=== PATIENT | male | born 1940 | race African-American/Black ===

== ENCOUNTER → 2016-11-30 | Outpatient (CLI) | payer MEDICARE, OTHER ==
[~2016-11-30] VITALS: Ht 167.6 cm; Wt 63.6 kg
[~2016-11-30] MED LIST: ALEVE220 MG PO; AMBIEN 10 MG TA10 MG PO; AMLODIPINE BESYL5 MG PO; CARAFATE1 GM/10 ML PO; CHLORTHALIDONE25 MG PO; CITRATE OF MAG296 ML PO; COLACE100 MG PO; CYCLOBENZAPRINE10 MG PO; DITROPAN XL10 MG PO; FLEXERIL PO; FLOMAX PO; FLOMAX0.4 MG PO; HARVONI 90-4001 EACH PO; HCTZ/LISINOPRIL; HYDROCODON-ACE1 EAC5 PO; HYDROCODONE-AP1 EAC6 PO; IBUPROFEN 200200 M1 PO; IBUPROFEN 400400 M1 PO; IBUPROFEN 800800 M1 PO; KEFLEX500 MG PO; LIDODERM 5%1 PATC1 TOP; LIDODERM 5%1 PATC1 TRANSDERM; LIDODERM 5%1 PATCH TOP; LISINOPRIL20 MG PO; LISINOPRIL40 MG PO; LORTAB 5 MG/5001 TA1 PO; LORTAB PO; MEDROLDOSEPACK PO; METAMUCIL PAC1 UDPKT PO; MIRALAX17 GM PO; MIRALAX255 GM PO; MOM; NOHOMEMEDICATIONS; NORCO 5-325 TA1 EACH PO; NORVASC 5 MG TAB5 MG PO; NORVASC10 MG PO; OMEPRAZOLE20 M2 PO; OXYBUTYNIN 5 MG5 M2 PO; PERCOCET 5-3251 EACH PO; PREDNISONE 10 M10 M1 PO; PRILOSEC40 MG PO; PROTONIX40 M2 PO; SANCTURA XR60 M1 PO; SENOKOT-S1 TA1 PO; TOPROL XL50 MG PO; TRAMADOL 50 MG50 MG PO; VALIUM10 MG PO; VICODIN 5-5001 EACH PO; ZOLPIDEM TARTRA10 MG PO; ZPAK PO; [UNRECOGNIZED DRUG - CODE] PO
--- NOTE | ~2016-11-30 | HPC ---
[facility] [place] [address] PAIN MANAGEMENT CONSULTATION Name: SAURABH RAI DENISA Room #: REG STEVE Schneider#: [id number] Admission: 11/30/16 Attend Phys: Doug Bauer DO Discharge: Date of : 39 Report #: [id number] THIS REPORT FOR: //name// CC: [facility] physician/PCP Doug Grimm MD DATE OF SERVICE: 11/30/2016 CHIEF COMPLAINT: Low back pain, bilateral lower extremity pain. HISTORY OF PRESENT ILLNESS: As you know, the patient is a 76-year-old male referred to our service by Dr. Ben Grimm for medication management. The attempt to try to keep the patient at an Emergency Department to receive opioid medications. We have done a successful job of doing so. He has returned today in followup visit for medication management reporting pain level of 6/10. States pain is constant, aching, burning in sensation, exacerbated with walking, standing for any length of time, sitting for any length of time, improves with medications, repositioning, rest and using his wheelchair. ALLERGIES: PROPOXYPHENE. CURRENT MEDICATIONS: Tamsulosin, Harvoni, lisinopril, ribavirin, chlorthalidone, oxybutynin, hydrocodone, ibuprofen, MiraLax, metoprolol, docusate sodium and lisinopril. SOCIAL HISTORY: The patient denies tobacco, alcohol or IV or illicit drug use. He is unaccompanied today. PHYSICAL EXAMINATION: VITAL SIGNS: Blood pressure 160/86, pulse is 80, respiratory rate 20, unlabored. The patient is 100% on room air. Height 5 feet 6 inches tall, weight 140.2 pounds, BMI calculated 22.6. GENERAL: Well developed, well nourished, well hydrated 76-year-old male, appears his stated age, placing current pain score 6/10. HEENT: Normocephalic, atraumatic. Pupils equal, round, reactive to light. EXTREMITIES: Show no clubbing, no cyanosis, no edema. MUSCULOSKELETAL: There is seated straight leg raising that is negative. Supine straight leg raising negative. Mike test negative. Modified Gaenslen's is positive for axial low back pain. There is palpatory tenderness throughout the thoracic and lumbar area. ASSESSMENT: 1. Post-laminectomy syndrome. 2. Chronic low back pain. 3. Chronic lumbar radiculopathy. [address] [address] PAIN MANAGEMENT CONSULTATION Name: SAURABH RAI DENISA Room #: REG CLOneal Jennie#: [id number] Admission: 11/30/16 Attend Phys: Doug Bauer DO Discharge: Date of : 39 Report #: [id number] 4. Lumbosacral spondylosis with radicular symptoms. 5. Chronic intractable pain. PLAN: 1. The patient returns today in followup visit for medication management. He feels medications are working beneficially for pain control. He is denying any side effects to medication, wishes to continue on the therapy that we have provided in the past. He does indicate today that the Lidoderm patches are no longer being covered. He does request a prescription of his medication to take with him in hopes that they will ultimately cover the medication. He has requested 3 months' worth of medication. 2. The patient was provided a prescription of Lidoderm 1 patch q. 12 hours, #30, releases of today, 4 weeks from today, 8 weeks from today, 3 months' worth of medication. 3. The patient was provided a prescription of hydrocodone/acetaminophen 10/325 one tab p.o. q. 6 hours p.r.n. for pain, #120, releases of today, 4 weeks from today, 8 weeks from today. 4. We reviewed the fact that opiate medications are being used to provide analgesia adequate to support activities of daily living, not attempting to achieve a specific pain score on the 0-10 Visual Analog Scale. The current opiate medications are providing sufficient analgesia to allow the patient to participate in activities of daily living. The patient is not exhibiting any aberrant behavior suggestive of drug diversion. The patient is not having any adverse reactions to medications. The patient is not suffering from daytime somnolence or mental acuity changes. The patient is managing opiate-induced constipation with appropriate iejr-gqs-dcwujdd agents and dietary considerations. The patient was counseled on concern for caution with operating a motor vehicle while using opiate medications. A physical exam was performed and the patient's functional status was evaluated. All patients with back pain were advised against the bed rest greater than 4 days and were advised to return to normal activities. Pain score assessment was noted and the treatment plan was reviewed with the patient. All current medications, both prescribed and OTC were reviewed and reconciled on the electronic medical record. Tobacco screening was accomplished and smoking cessation was advised when indicated. BMI was noted and diet/exercise modification was recommended for all patients following outside normal parameters. I reviewed with the patient today their responsibilities to safeguard prescription medications, reviewed their responsibility to utilize medications only as prescribed by the physician. They are to seek and receive pain medications only from 1 physician group ([facility]). They are to use 1 pharmacy and keep the clinic informed if they change pharmacies. Their responsibilities include making followup visits in a timely fashion and to avoid abrupt discontinuation of medication usage. Their responsibilities further [address] [address] PAIN MANAGEMENT CONSULTATION Name: SAURABH RAI DENISA Room #: REG STEVE Jennie#: [id number] Admission: 11/30/16 Attend Phys: Doug Bauer DO Discharge: Date of : 39 Report #: [id number] include bringing their medications (bottles from the pharmacy with residual pills) to the visit for possible confirmation of pill counts and the patient understands it is their responsibility to submit to random drug screens to ensure both that the medications prescribed are present, and that no other controlled substances are present. All prescriptions provided today were generated electronically. 5. The patient will return to our clinic in 3 months for medication management. <ELECTRONICALLY SIGNED> By: Doug Bauer DO 12/06/16 0737 [id number] [id number] Doug Bauer DO /nt
[2016-11-30 09:47] VITALS: BP 160/86
== END | disposition home or self-care (01) ==
LOC: PAIN 07:03
DX: M96.1 Postlaminectomy syndrome, not elsewhere classified (principal); M47.27 Other spondylosis with radiculopathy, lumbosacral region; G89.29 Other chronic pain

== ENCOUNTER → 2017-02-28 | Outpatient (CLI) | payer MEDICARE, OTHER ==
[~2017-02-28] VITALS: Ht 165.1 cm; Wt 70.9 kg
[~2017-02-28] MED LIST changes: +MOVANTIK25 MG PO; +MYRBETRIQ25 MG PO
--- NOTE | ~2017-02-28 | HPC ---
[facility] [place] [address] PAIN MANAGEMENT CONSULTATION Name: SAURABH ARI DENISA Room #: REG STEVE MirandaDorie#: [id number] Admission: 02/28/17 Attend Phys: Doug Bauer DO Discharge: Date of : 39 Report #: [id number] THIS REPORT FOR: //name// CC: [facility] physician/PCP Doug Grimm MD DATE OF SERVICE: 02/28/2017 DATE OF SERVICE: 02/28/2017 CHIEF COMPLAINT: Low back pain, bilateral lower extremity pain. HISTORY OF PRESENT ILLNESS: As you know, the patient is a very pleasant 76-year-old male, who is referred to our clinic by Dr. Ben Grimm for medication management in an attempt to keep the patient out of the Emergency Department just to receive pain medications. We have done a successful job of keeping the patient out of the Emergency Department. He continues to return for other issues, as he does not have a primary care physician. He returns today stating that the pain medications are working well, despite the elevated pain report 05/29. He is having some issues with constipation, which is believed to be due to opioids. He returns to discuss this issue as well as refill medications. He denies any injury or trauma that may have led to progression of pain. ALLERGIES: PROPOXYPHENE. CURRENT MEDICATIONS: Myrbetriq 25 mg a day, chlorthalidone 25 mg twice a day, Lidoderm patch apply topically up to 12 hours at a time, hydrocodone 10/325 one tab every 6 hours p.r.n. for pain, oxybutynin 5 mg twice a day, ibuprofen 400 mg 3 times a day, MiraLax 17 grams per day, metoprolol 50 mg once a day, docusate sodium 100 mg twice a day. SOCIAL HISTORY: The patient denies tobacco, alcohol or IV or illicit drug use. He is unaccompanied today. He is using a scooter for ambulation. IMAGING: No imaging available. PHYSICAL EXAMINATION: VITAL SIGNS: Blood pressure 140/82, pulse 89, respiratory rate 20, unlabored. The patient is 100% on room air, height 5 feet 5 inches tall, weight 156.4 pounds, BMI calculated 26. GENERAL: Well-developed, well-nourished, well-hydrated 76-year-old male appearing stated age, placing pain score today 7/10. HEENT: Normocephalic, atraumatic. Pupils equal, round, reactive to light. Extraocular muscles are intact. [place] [address] PAIN MANAGEMENT CONSULTATION Name: FREDISAURABH DENISA Room #: REG [facility] Jennie#: [id number] Admission: 02/28/17 Attend Phys: Doug Bauer DO Discharge: Date of : 39 Report #: [id number] EXTREMITIES: Show no clubbing, no cyanosis, no edema. MUSCULOSKELETAL: Mike test is negative. Modified Gaenslen's positive for axial low back pain. Seated straight leg raising negative. Supine straight leg raising negative. Palpatory tenderness over the thoracolumbar area. No spinous process tenderness. Ankle clonus negative. Babinski is negative. ASSESSMENT: 1. Post-laminectomy syndrome. 2. Chronic low back pain. 3. Chronic lumbar radicular symptoms. 4. Lumbosacral spondylosis with radicular symptoms. 5. Lumbar degeneration. 6. Opioid-induced constipation. 7. Chronic intractable pain. PLAN: 1. The patient has returned today in followup visit for medication management. During our conversation today, the patient indicates that he has been having significant difficulties with constipation issues. Biov-ysm-wuhhqyu medications have lost efficacy. It is believed his constipation is due to his chronic use of opioids. We have discussed with the patient's medications that might be able to resolve this problem. We have given the patient Movantik 25 mg dose samples and also written a prescription for him. He is to take the samples initially. If his constipation resolves with this medication and only this medication, he is to stop all other kyms-nfe-blkeztp medications at this time, where I would recommend filling the Movantik dose and take it daily to decrease opioid-induced constipation issues. He was given the prescriptions and the samples today. He is to discontinue all quzj-ehz-pgdpxke constipation medications in favor of utilizing the samples of Movantik. Again if this medication is effective, he is to fill the prescription provided today. 2. The patient has requested refills of his hydrocodone. We have given the patient hydrocodone 10/325 mg 1 tab p.o. q. 6 hours p.r.n. for pain, #120 releases of today, 4 weeks from today, 8 weeks from today. 3. The patient was provided a prescription of Lidoderm 5% patch 1 patch q. 12 hours, given #30 patches, 2 refills. 4. The patient will follow up with his primary care physician for all other concomitant medical issues. We will see the patient back for followup visit in 3 months. <ELECTRONICALLY SIGNED> By: Doug Bauer DO 03/01/17 1128 0740 0837 Doug Bauer, /nt
[2017-02-28 10:08] VITALS: BP 148/82
== END | disposition home or self-care (01) ==
LOC: PAIN 07:18
DX: M96.1 Postlaminectomy syndrome, not elsewhere classified (principal); M54.16 Radiculopathy, lumbar region; M47.817 Spondylosis without myelopathy or radiculopathy, lumbosacral region; M51.36 Other intervertebral disc degeneration, lumbar region; F11.988 Opioid use, unspecified with other opioid-induced disorder; G89.29 Other chronic pain

== ENCOUNTER → 2017-05-30 | Outpatient (CLI) | payer MEDICARE, OTHER ==
[~2017-05-30] VITALS: Ht 170.2 cm; Wt 63.5 kg
[~2017-05-30] MED LIST changes: +PROSTATE HEALT1 EAC1 PO
[2017-05-30 12:35] VITALS: BP 175/94
== END | disposition home or self-care (01) ==
LOC: PAIN 07:24
DX: M47.27 Other spondylosis with radiculopathy, lumbosacral region (principal); G89.29 Other chronic pain; M96.1 Postlaminectomy syndrome, not elsewhere classified; F11.20 Opioid dependence, uncomplicated; Z98.890 Other specified postprocedural states

== ENCOUNTER → 2017-08-29 | Outpatient (CLI) | payer MEDICARE, OTHER ==
[~2017-08-29] VITALS: Ht 170.2 cm; Wt 65.8 kg
--- NOTE | ~2017-08-29 | HPC ---
[facility] [place] [address] PAIN MANAGEMENT CONSULTATION Name: FREDISAURABH DENISA Room #: REG STEVE Schneider#: [id number] Admission: 08/29/17 Attend Phys: Doug Bauer DO Discharge: Date of : 39 Report #: [id number] THIS REPORT FOR: //name// CC: [facility] physician/PCP Doug Grimm MD DATE OF SERVICE: 08/29/2017 REFERRING PHYSICIAN: Blake Grimm MD CHIEF COMPLAINT: Low back pain, bilateral lower extremity pain and paresthesias. HISTORY OF PRESENT ILLNESS: As you know, the patient is a 77-year-old male who returns today in followup visit for continuation of medication therapy. He is placing current pain score 6-7/10, states pain is chronic, aching and burning in sensation, exacerbated with activity, improves with medications, sitting, rest and using his scooter as well as exercises. He returns today in followup visit for medication management. He states he is being followed by orthopedics who is providing intraarticular knee injections for pain control. He appears to be improving with these injections. He returns for refills of his hydrocodone therapy. ALLERGIES: PROPOXYPHENE. CURRENT MEDICATIONS: Docusate sodium, hydrocodone, Prostate Health caplet, Myrbetriq, chlorthalidone, ibuprofen, MiraLax, and metoprolol. SOCIAL HISTORY: The patient denies tobacco, alcohol, IV or illicit drug use. He is on disability, has been so for years, he is unaccompanied today. IMAGING: No new imaging available. PHYSICAL EXAMINATION: VITAL SIGNS: Blood pressure 169/95, pulse is 74, respiratory rate 16 and unlabored, the patient is 97% on room air, height 5 feet 7 inches tall, weight 145 pounds, and BMI calculated 22.7. GENERAL: Well-developed, well-nourished, well-hydrated 77-year-old male, appears his stated age, pain is rated at around 6-7/10. HEENT: Normocephalic, atraumatic. Pupils are equal, round, and reactive to light. Speech is fluent. Poor dentition. EXTREMITIES: Show no clubbing, no cyanosis, and no edema. MUSCULOSKELETAL: Lower extremity strength is symmetrical, but diminished bilaterally. Seated straight leg raising negative. Supine straight leg raising negative. Allen's test negative. Modified Gaenslen's positive for axial low [address] [address] PAIN MANAGEMENT CONSULTATION Name: FR[facility]ISAURABH [id number] Admission: 08/29/17 Attend Phys: Doug Bauer DO Discharge: Date of : 39 Report #: [id number] back pain. Ankle clonus negative. Babinski is negative. ASSESSMENT: 1. Post laminectomy syndrome. 2. Chronic low back pain. 3. Chronic lumbar radiculopathy. 4. Lumbosacral spondylosis with radicular symptoms. 5. Degeneration of lumbar spine. 6. Opioid dependency. 7. Chronic intractable pain. PLAN: 1. The patient returns today in followup visit for medication management. The patient feels medications are working beneficially despite the elevated pain score today. The patient has requested a refill on the medication at the current dosing. We have been successful at providing analgesic benefit, keeping the patient out of the emergency department and utilizing the health system inappropriately. This was requested by Dr. Ben Grimm, we will continue this medication therapy to assist in keeping the patient under control from a pain standpoint. We recommend the continuation of the therapy for the next 3 months. The patient will ultimately need to find a primary care physician willing to write these medications as we cannot be involved in his long-term opioid therapy for perpetuity. The patient will need to find somebody who will be able to initiate therapy and continue the therapy more convenient to his home. 2. The patient was provided a prescription of hydrocodone 10/325 one tab every 6 hours p.r.n. for pain, I have given the patient #120, release dates of today, 4 weeks from today, 8 weeks from today. He has been appropriate with his medication, has not called for early refills nor has he lost or had prescription stolen. He is to safeguard his medications as we have discussed every visit prior. 3. We will see the patient back in followup visit in 3 months unless he can find a primary care physician willing to provide these treatments to maintain his analgesic benefit keeping him out of the emergency department and utilizing the system inappropriately. He will discuss this with his PCP and contact us with results. <ELECTRONICALLY SIGNED> By: Doug Bauer DO 08/30/17 0806 1635 1738 Doug Bauer DO /nt
[2017-08-29 09:58] VITALS: BP 169/95
== END | disposition home or self-care (01) ==
LOC: PAIN 07:10
DX: M96.1 Postlaminectomy syndrome, not elsewhere classified (principal); M54.16 Radiculopathy, lumbar region; M47.27 Other spondylosis with radiculopathy, lumbosacral region; F11.20 Opioid dependence, uncomplicated; G89.29 Other chronic pain; Z88.8 Allergy status to other drugs, medicaments and biological substances; Z79.899 Other long term (current) drug therapy

== ENCOUNTER → 2017-11-28 | Outpatient (CLI) | payer MEDICARE, OTHER ==
[~2017-11-28] VITALS: Ht 170.2 cm; Wt 65.8 kg
[~2017-11-28] MED LIST changes: +BAYER CHEWABLE81 MG PO; +CENTRUM SILVER1 EAC2 PO; +CIPRO250 M1 PO; +CONSTULOSE10 GM/152 PO; +FERROUS GLUCON324 M3 PO; +LIDODERM1 EACH TOP; +LIDODERM1 EACH TRANSDERM; +NEURONTIN 300300 M1 PO; +PROTONIX40 M1 PO; +SIMETHICON CHEW80 M1 PO; +URECHOLINE 10 M10 M1 PO; +VITAMIN D2000 UNIT PO
--- NOTE | ~2017-11-28 | HPC ---
[facility] [address] [place] [address] PAIN MANAGEMENT CONSULTATION Name: FREDISAURABH DENISA Room #: REG STEVE Schneider#: [id number] Admission: 11/28/17 Attend Phys: Doug Bauer DO Discharge: Date of : 39 Report #: [id number] THIS REPORT FOR: //name// CC: [facility] physician/PCP Doug Grimm MD DATE OF SERVICE: 11/28/2017 REFERRING PHYSICIAN: Blake Grimm MD CHIEF COMPLAINT: Low back pain, bilateral lower extremity pain. HISTORY OF PRESENT ILLNESS: As you know, the patient is a 77-year-old male who returns today in followup visit for medication management. He is placing his pain score today at around 6/10, states pain is constant, aching, burning in sensation, exacerbated with activity, walking, and standing, improves with medication, sitting resting, using a scooter and exercise. He returns today requesting refill on medications. He denies any injury or trauma that may have led to progression of symptoms. He is having no side effects with the therapy at this point. ALLERGIES: PROPOXYPHENE. CURRENT MEDICATIONS: See chart. SOCIAL HISTORY: The patient denies tobacco, alcohol, IV or illicit drug use. He is on disability, has been so for years. He is unaccompanied today. He is using a scooter for ambulation. IMAGING: No new imaging available. PHYSICAL EXAMINATION: VITAL SIGNS: Blood pressure 144/85, pulse 83, respiratory rate 14 and unlabored, the patient is 98% on room air, height 5 feet 7 inches tall, weight 145 pounds, and BMI calculated 22.7. GENERAL: Well-developed, well-nourished, well-hydrated, thin 77-year-old male, appears his stated age, he is placing current pain score somewhere between 6-7/10. HEENT: Normocephalic, atraumatic. Pupils are equal, round, and reactive to light. Extraocular muscles are intact. EXTREMITIES: Show no clubbing, no cyanosis, and no edema. MUSCULOSKELETAL: Lower extremity strength is symmetrical, but diminished bilaterally. Seated straight leg raising negative. Supine straight leg raising negative. Mike's test negative. Modified Gaenslen's positive for axial low back pain. Ankle clonus negative. Babinski is negative. [address] [address] PAIN MANAGEMENT CONSULTATION Name: SAURABH RAI DENISA Room #: REG Oneal Schneider#: [id number] Admission: 11/28/17 Attend Phys: Doug Bauer DO Discharge: Date of : 39 Report #: [id number] ASSESSMENT: 1. Post laminectomy syndrome. 2. Chronic low back pain. 3. Chronic lumbar radiculopathy. 4. Degeneration of lumbar spine. 5. Lumbosacral spondylosis with radicular symptoms. 6. Opioid dependency. 7. Chronic intractable pain. PLAN: 1. The patient returns today in followup visit for medication management. The patient indicates good efficacy with medication therapy. He is being seen by wound care for a decubitus ulcer on his buttock secondary to his prolonged sitting. We have discussed with the patient our desire to have him ambulate more consistently, this should alleviate some of his decubitus pressure. He is considering this as an option. He has returned requesting refill on medications. Following was prescribed. 2. The patient was provided a prescription of hydrocodone 10/325 one tab every 6 hours p.r.n. for pain, #120, release dates of today, 4 weeks from today, 8 weeks from today. He has been stable on this medication for a very long period of time, no changes are necessary. 3. The patient was provided a prescription of Lidoderm patch 1 patch topically every 12 hours, given #30, 2 refills. 4. The patient was provided a refill prescription of his ibuprofen 400 mg dose 2 tabs p.o. b.i.d., #120, release is now, 4 weeks and 8 weeks. 5. We will see the patient back in followup visit in 3 months for medication therapy, interventional treatments. It did come to our attention the patient is seeking interventional treatments at another facility, if this is the case, we will be discharging his care to their facility as they can take over medication management if he is being seen for other pain related issues. <ELECTRONICALLY SIGNED> By: Doug Bauer DO 12/12/17905 1 1 Doug Bauer DO /nt
[2017-11-28 10:00] VITALS: BP 144/85
== END ==
LOC: PAIN 06:48
DX: M96.1 Postlaminectomy syndrome, not elsewhere classified (principal); M47.896 Other spondylosis, lumbar region; M47.27 Other spondylosis with radiculopathy, lumbosacral region; G89.29 Other chronic pain; F11.90 Opioid use, unspecified, uncomplicated

== ENCOUNTER → 2018-02-27 | Outpatient (CLI) | payer MEDICARE, OTHER ==
[~2018-02-27] VITALS: Ht 170.2 cm; Wt 68.0 kg
[~2018-02-27] MED LIST changes: -BAYER CHEWABLE81 MG PO; -CENTRUM SILVER1 EAC2 PO; -CIPRO250 M1 PO; -CONSTULOSE10 GM/152 PO; -FERROUS GLUCON324 M3 PO; -LIDODERM1 EACH TOP; -NEURONTIN 300300 M1 PO; -PROTONIX40 M1 PO; -SIMETHICON CHEW80 M1 PO; -URECHOLINE 10 M10 M1 PO; -VITAMIN D2000 UNIT PO
--- NOTE | ~2018-02-27 | HPC ---
[facility] [place] [address] PAIN MANAGEMENT CONSULTATION Name: FREDISAURABH DENISA Room #: REG STEVE BooneDorieHannaDorie#: [id number] Admission: 02/27/18 Attend Phys: Doug Bauer DO Discharge: Date of : 39 Report #: [id number] THIS REPORT FOR: //name// CC: FAM physician/PCP Doug Grimm MD DATE OF SERVICE: 02/27/2018 REFERRING PHYSICIAN: Ben Grimm M.D. CHIEF COMPLAINT: Low back pain, bilateral lower extremity pain and bilateral knee change secondary to osteoarthritis. HISTORY OF PRESENT ILLNESS: As you know, the patient is a 77-year-old male who returns today in followup visit indicating no changes in his medical history. He is placing current pain score at approximately 7/10. The majority of his pain is located in the bilateral knees, for which he is being evaluated for total knee arthroplasty. At present, his back pain is only at a level of 3/10. He has returned today in followup visit requesting refill on medications to maintain analgesic benefit. He is denying side effects to the hydrocodone, ibuprofen therapy and wishes to continue the treatment. He does have plans to seek evaluation with Orthopedics once he has completed his requested physical therapy. Once this has completed, they may look towards a total knee arthroplasty. He returns requesting refill on medications. ALLERGIES: PROPOXYPHENE. CURRENT MEDICATIONS: Ibuprofen 400 mg twice a day, hydrocodone 10/325 one tab every 6 hours p.r.n. for pain, docusate sodium 100 mg per day, saw palmetto oil 1 tab per day, Myrbetriq 25 mg once a day, chlorthalidone 25 mg twice a day, MiraLax 17 grams per day and metoprolol XL 50 mg once a day. SOCIAL HISTORY: The patient denies tobacco, alcohol, IV or illicit drug use. He is on disability, has been so for years and he is unaccompanied today. IMAGING: No new imaging available. PQRS: The patient has known osteoarthritis in the upper extremities and lower extremities. No rheumatoid arthritis. He places his pain score at 7/10. He is a fall risk. He is using a scooter for ambulation. He has not had a fall in the last 3 months. He is not on blood thinners. He is treated for hypertension. He is on opioids and has been for a very long period of time. He has a low assessment for opioid dependency. His functional assessment/pain interference tool indicates 27 of 70, [id number] [address] PAIN MANAGEMENT CONSULTATION Name: FREDISAURABH DENISA Room #: REG STEVE Schneider#: [id number] Admission: 02/27/18 Attend Phys: Doug Bauer DO Discharge: Date of : 39 Report #: [id number] PHYSICAL EXAMINATION: VITAL SIGNS: Blood pressure 131/95, pulse 86 and respiratory rate 16, unlabored. The patient is 98% on room air. Height 5 feet 7 inches tall, weight 150 pounds and BMI calculated at 23.5. GENERAL: Well-developed, well-nourished, well-hydrated 77-year-old male, who appears stated age. He is placing pain score at 7/10. HEENT: He is normocephalic, atraumatic. Pupils equal, round and reactive to light. Speech is fluent for the patient. He is deemed a poor historian. LUNGS: Clear. No wheezes, rhonchi or rales. CARDIOVASCULAR: Regular. No appreciable gallop or rub. EXTREMITIES: Show no clubbing, no cyanosis. There is noted crepitus with movement of the knees bilaterally, left greater than right. MUSCULOSKELETAL: Lower extremity strength equal and symmetrical, diminished bilaterally due to deconditioning. Seated straight leg raising negative. Supine straight leg raising negative. Mike test negative. Modified Gaenslen's positive for axial low back pain. Ankle clonus negative. Babinski is negative. ASSESSMENT: 1. Post-laminectomy syndrome. 2. Chronic low back pain. 3. Chronic lumbar radicular symptoms. 4. Degeneration of lumbar spine. 5. Lumbosacral spondylosis with radicular symptoms. 6. Bilateral knee pain. 7. Osteoarthritis. 8. Chronic intractable pain. PLAN: 1. The patient returns today in followup visit indicating that he is being evaluated currently for total knee arthroplasty, left and right sided. He continues physical therapy as directed by Orthopedics to continue to strengthen the lower extremities in preparation for total knee arthroplasties. The plan is to have the patient undergo this procedure in the very near future. He is yet to plan this appointment for surgery, but does have followups with him periodically. 2. The patient has requested refill on medications. We have given him ibuprofen 200 mg tablets 2 tabs twice a day, #120. He is to take this with meals. He was given 2 refills, 3 months' worth of medication. 3. The patient was provided refill prescription of his hydrocodone 10/325 one tab every 6 hours p.r.n. for pain. I have given the patient #120, releases of today, 4 weeks from today, 8 weeks from today, 3 months' worth of medication. 4. The patient will contact our clinic to advise us of the timing of his total knee arthroplasty. We are hopeful that once the patient has undergone surgery for the bilateral knee pain, that he will be able to begin weaning off his opioids, as a long-term opioid therapy is not a proved treatment option for axial back pain the patient has been experiencing and we are hopeful that we [address] [place] [address] PAIN MANAGEMENT CONSULTATION Name: SAURABH RAI DENISA Room #: REG STEVE Schneider#: [id number] Admission: 02/27/18 Attend Phys: Doug Bauer DO Discharge: Date of : 39 Report #: [id number] can ultimately have him reduce this dose to anti-inflammatory medications specifically. 5. We will see the patient back in followup visit in 3 months or earlier if adjustments can be made to reduce his reliance on opioids. By: [id number] [id number] Doug Bauer DO /nt
[2018-02-27 09:20] VITALS: BP 131/95
== END ==
LOC: PAIN 07:09
DX: M96.1 Postlaminectomy syndrome, not elsewhere classified (principal); M47.27 Other spondylosis with radiculopathy, lumbosacral region; G89.29 Other chronic pain; M25.561 Pain in right knee; M25.562 Pain in left knee; M19.90 Unspecified osteoarthritis, unspecified site; Z88.6 Allergy status to analgesic agent

== ENCOUNTER → 2018-06-13 | Outpatient (CLI) | payer MEDICARE, OTHER ==
[~2018-06-13] VITALS: Ht 170.2 cm; Wt 72.6 kg
[~2018-06-13] MED LIST changes: +BAYER CHEWABLE81 MG PO; +CENTRUM SILVER1 EAC2 PO; +CIPRO250 M1 PO; +CONSTULOSE10 GM/152 PO; +FERROUS GLUCON324 M3 PO; +LIDODERM1 EACH TOP; +NEURONTIN 300300 M1 PO; +PROTONIX40 M1 PO; +SIMETHICON CHEW80 M1 PO; +URECHOLINE 10 M10 M1 PO; +VITAMIN D2000 UNIT PO
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
[2018-06-13 13:34] VITALS: BP 163/78
== END ==
LOC: PAIN 06:28
DX: Z09 Encounter for follow-up examination after completed treatment for conditions other than malignant neoplasm (principal); I10 Essential (primary) hypertension; M17.0 Bilateral primary osteoarthritis of knee; M19.012 Primary osteoarthritis, left shoulder; M19.011 Primary osteoarthritis, right shoulder; Z79.891 Long term (current) use of opiate analgesic

== ENCOUNTER → 2018-09-19 | Outpatient (CLI) | payer MEDICARE, OTHER ==
[~2018-09-19] VITALS: Ht 172.7 cm; Wt 63.5 kg
--- NOTE | ~2018-09-19 | HPC ---
[facility] [place] [address] [address] [place] [address] PAIN MANAGEMENT CONSULTATION Name: SAURABH RAI DENISA Room #: REG STEVE BooneDorieHannaDorie#: [id number] Admission: 09/19/18 Attend Phys: Li Ferreira Discharge: Date of : 39 Report #: [id number] THIS REPORT FOR: //name// CC: Li Ferreira [facility] physician/PCP DATE OF SERVICE: 09/19/2018 CHIEF COMPLAINT: The patient is here today for medication refill for his chronic low back pain with lumbar radiculopathy, status post lumbar laminectomy syndrome. HISTORY OF PRESENT ILLNESS: The patient is a 78-year-old black gentleman who has been followed in the pain clinic by Dr. Doug Bauer. He returns to the pain clinic today for his medication refill for his low back pain as well as pain that goes into his legs and knees. The patient states that his medication is very helpful in relieving his pain. He takes hydrocodone 10/325 four times a day as well as ibuprofen 400 mg tablets twice a day. The patient tells me that his pain score is 5/6 today. He does have occasionally constant, aching, burning pain in his legs, worse with activity, standing and walking. The patient tells me since his last visit, he was in the hospital for constipation issues and after that went to [facility]. He tells me that his constipation is currently controlled by increasing his diet to a healthier diet, eating more green vegetables and he is taking on a daily basis Colace and MiraLax. He denies daytime sleepiness. The patient also tells me that he has been doing physical therapy at [facility], he goes 2 times a week, has been going for the last month. He tells me he needs left knee replacement and before he can do that he needs to be able to strengthen his leg, it has gotten weak over the years and contracted some. The patient is able to straight leg raise up to maybe 150-160 degrees at this time. He tells me he is also practicing walking with a walker while at therapy. They use a machine to help him stand. He is very excited to be able to continue this therapy so that he is more mobile and hopefully not in his wheelchair all the time. The patient tells me he does take his therapy sessions twice a week and then continues all the therapies that he is able to do at home. ALLERGIES: DARVON. CURRENT LIST OF MEDICATIONS: Lactulose, simethicone, gabapentin, multivitamin, iron, Urecholine, Flomax, aspirin, vitamin D3, Flexeril, Protonix, ibuprofen, hydrocodone 10/325 four a day, Colace, prostate health capsule, chlorthalidone, MiraLax and Toprol. PQRS: 1. The patient has a history of osteoarthritis in his upper and lower extremities, bilateral. Denies rheumatoid arthritis. [address] [address] PAIN MANAGEMENT CONSULTATION Name: FREDISAURABH DENISA Room #: REG [facility] Jennie#: [id number] Admission: 09/19/18 Attend Phys: Li Ferreira Discharge: Date of : 39 Report #: [id number] 2. Height is 5 feet 8 inches, weight is 140, BMI is 21.3. 3. Vital signs 143/74, pulse is 72, respirations 18, oxygen level is 97%. 4. Pain intensity is 6/10. 5. Fall risk: He denies dizziness. He does need help walking. He is in a wheelchair today. He has not fallen in the last 3 months. 6. Denies blood thinners. 7. Has a history of hypertension. 8. Opioid therapy greater than 6 weeks and opioid signed contract is on the chart. 9. Risk assessment tool is 01/27 and his functional assessment is . 10. Recreational drug use, the patient denies. He states he has never smoked and does not drink alcohol. The patient was checked for his [place] PDMP, is on the chart and appropriate fills from Dr. Annika Wesley and Dr. Doug Bauer. No other aberrant behaviors and the patient tells me he safeguards his medicines. PHYSICAL EXAMINATION: GENERAL: The patient is a well-developed black male who appears his stated age. He is alert and oriented. HEENT: Normocephalic, atraumatic. Extraocular muscles are intact. Speech is fluent. EXTREMITIES: Upper extremities: No clubbing or cyanosis. The patient complains of pain in his back and knees. MUSCULOSKELETAL: Strength equal in upper extremities, diminished in his lower extremities. The patient able to raise his left leg to 150 degrees extension, in his right at 180. No edema noted. IMPRESSION: 1. Post-laminectomy syndrome. 2. Chronic low back pain. 3. Lumbar radiculopathy. 4. Degeneration of lower lumbar spine. 5. Bilateral knee pain. 6. Osteoarthritis. We reviewed the fact that opiate medications are being used to provide analgesia adequate to support activities of daily living, not attempting to achieve a specific pain score on the 0-10 Visual Analog Scale. The current opiate medications are providing sufficient analgesia to allow the patient to participate in activities of daily living. The patient is not exhibiting any aberrant behavior suggestive of drug diversion. The patient is not having any adverse reactions to medications. The patient is not suffering from daytime somnolence or mental acuity changes. The patient is managing opiate-induced constipation with appropriate lbqa-ris-ovvmuse agents and dietary considerations. The patient was counseled on concern for caution with operating a motor vehicle while using opiate medications. [facility] [address] [place] [address] PAIN MANAGEMENT CONSULTATION Name: SAURABH RAI DENISA Room #: REG [facility] Ruben.#: [id number] Admission: 09/19/18 Attend Phys: Li Ferreira Discharge: Date of : 39 Report #: [id number] A physical exam was performed and the patient's functional status was evaluated. All patients with back pain were advised against the bed rest greater than 4 days and were advised to return to normal activities. Pain score assessment was noted and the treatment plan was reviewed with the patient. All current medications, both prescribed and OTC were reviewed and reconciled on the electronic medical record. Tobacco screening was accomplished and smoking cessation was advised when indicated. BMI was noted and diet/exercise modification was recommended for all patients following outside normal parameters. I reviewed with the patient today their responsibilities to safeguard prescription medications, reviewed their responsibility to utilize medications only as prescribed by the physician. They are to seek and receive pain medications only from 1 physician group ([facility]). They are to use 1 pharmacy and keep the clinic informed if they change pharmacies. Their responsibilities include making followup visits in a timely fashion and to avoid abrupt discontinuation of medication usage. Their responsibilities further include bringing their medications (bottles from the pharmacy with residual pills) to the visit for possible confirmation of pill counts and the patient understands it is their responsibility to submit to random drug screens to ensure both that the medications prescribed are present, and that no other controlled substances are present. All prescriptions provided today were generated electronically. PLAN: 1. The patient was seen for his medication refills. I think it was appropriate to refill his hydrocodone 10/325 one p.o. q.i.d., #120; script was given for today, 4-week and 8-week, ibuprofen 400 mg 1 tablet up to 4 times a day, 120 with 2 additional refills. 2. The patient will continue his physical therapy working towards a left total knee replacement in the near future. 3. Encourage the patient to get a flu shot. He said he had not had that done yet, but hopes to have that done in the near future from his primary care doctor. 4. The patient will be seen in 3-month time period by myself for renewal of his medications and then subsequent visit with Dr. Doug Bauer. The patient is agreeable with this plan of care. The patient was seen in collaboration today with Dr. Doug Bauer. <ELECTRONICALLY SIGNED> By: Li Ferreira 09/21/18 0716 [id number] Li Ferreira /eddie
[2018-09-19 10:44] VITALS: BP 143/74
== END ==
LOC: PAIN 06:53
DX: M96.1 Postlaminectomy syndrome, not elsewhere classified (principal); M54.5 Low back pain; G89.29 Other chronic pain; M25.561 Pain in right knee; M25.562 Pain in left knee; M17.11 Unilateral primary osteoarthritis, right knee; M17.12 Unilateral primary osteoarthritis, left knee; M47.896 Other spondylosis, lumbar region; Z79.899 Other long term (current) drug therapy

== ENCOUNTER → 2018-12-26 | Outpatient (CLI) | payer MEDICARE, OTHER ==
[~2018-12-26] VITALS: Ht 172.7 cm; Wt 68.0 kg
[~2018-12-26] MED LIST changes: +IBUPROFEN 400400 M2 PO
[2018-12-26 09:26] VITALS: BP 172/104
--- NOTE | 2018-12-26 09:29 | NUR ---
Pain Clinic Assessment: 1. History of Osteoarthritis: Left Lower Extremity Left Upper Extremity Right Lower Extremity Right Upper Extremity History of Rheumatoid Arthritis: Not Applicable 2. Height: 5 ft. 8 in. 172.7 cm. Weight: 150.0 lb. oz. 68.040 kg. Patient's BMI: 22.8 3. Vital Signs: BP: 172/104 Pulse: 75 Resp: 18 Temp: 02 Sat: 97 ECG Mon: 4. Pain Intensity: 6 5. Fall Risk: Dizziness: Y Needs help standing or walking: Y Fallen in the last 3 months: N Fall risk comments: 6. Patient on Blood Thinner: None 7. History of Hypertension: Y 8. Opioid Therapy greater than 6 weeks: Y Opiate Contract Signed: 06/01/16 9. Risk Assessment Tool Provided: 3 low risk 10. Functional Assessment Tool: 11. Recreational Drug Use: Never Drug Type: Tobacco Use: Never Smoker Tobacco Type: Amount or Packs/day: How Many Years: Alcohol Use: No Frequency: Quant:
--- NOTE | 2018-12-27 09:46 | HPC ---
[facility] [address] [place] [address] PAIN MANAGEMENT CONSULTATION Name: SAURABH RAI DENISA Room #: REG STEVE Jennie#: [id number] Admission: 12/26/18 Attend Phys: Li Ferreira Discharge: Date of : 39 Report #: [id number] THIS REPORT FOR: //name// CC: Li Ferreira [facility] physician/PCP DATE OF SERVICE: 12/26/2018 CHIEF COMPLAINT: Chronic low back pain with lumbar radiculopathy, status post lumbar laminectomy syndrome. HISTORY OF PRESENT ILLNESS: This is a very pleasant 78-year-old gentleman who has been followed in the pain clinic for his chronic low back pain. He is here today for a medication refill. The patient tells me that he has been doing fairly well. Pain score 6/10, mostly in his low back and his knees. He tells me he has been doing physical therapy for his knees for quite some time at [facility] trying to get it built up in strength, so he can have a knee replacement. He has also started some physical therapy for his shoulder pain. He tells me he did have a bad bout of constipation, which resulted in a barium enema. It sounds like to have it resolved. He has discussed ongoing constipation issues. He tells me overall he feels like he is doing fairly well with his current pain regimen. ALLERGIES: DARVON. CURRENT MEDICATIONS: Ibuprofen 400 mg 4 times a day, hydrocodone 10/325 up to 4 times a day, Cipro 250 b.i.d., lactulose daily, simethicone as needed, gabapentin 300 mg daily, multivitamin daily, iron daily, Urecholine 10 mg daily, Lidoderm patches as needed, Flomax daily, aspirin 81 mg daily, vitamin D daily, Flexeril as needed, Protonix 40 mg daily, Colace 100 mg daily, prostate health caplet daily, Myrbetriq 25 mg daily, chlorthalidone 25 mg b.i.d., MiraLax daily and metoprolol 50 mg daily. PQRS: 1. The patient has a history of osteoarthritis in his upper and lower extremities in his low back and his knees. Denies rheumatoid arthritis. 2. Height is 5 feet 8 inches, weight is 150, BMI is 22. 3. Vital signs: Blood pressure 172/104, pulse is 75, respirations 18, oxygen sat is 97%. Pain score 6/10. 4. Fall risk. He does complain of some dizziness. He does need help walking and standing, but he has not fallen in the last 3 months. He is sitting in his electric wheelchair today. 5. The patient is not on any blood thinners. He does have a history of hypertension. 6. Opioid therapy is greater than 6 weeks; therefore, an opioid signed contract is on the chart. [address] [address] PAIN MANAGEMENT CONSULTATION Name: SAURABH RAI Room #: REG STEVE Schneider#: [id number] Admission: 12/26/18 Attend Phys: Li Ferreira Discharge: Date of : 39 Report #: [id number] 7. Risk assessment tool is low. His functional assessment is 27/70. 8. Recreational drug use. He denies. He is not a smoker and he does not drink alcohol. We did check the prescription monitoring system. The patient feels appropriate with his current medications for Dr. Doug Bauer. We did check a drug screen on his last visit, though we have not seen the results and we will contact the lab again today. PHYSICAL EXAMINATION: GENERAL: This is a well-developed, well-nourished black gentleman who appears his stated age. He is alert and orientated and he is a good historian. HEENT: Normocephalic, atraumatic. Extraocular muscles are intact. Speech is fluent. EXTREMITIES: Upper extremities. No clubbing, no cyanosis. MUSCULOSKELETAL: Muscle strength is equal in his upper extremities, judging to be 5/5; is diminished in his lower extremities, judged to be 3-4/5 bilaterally. He is able to raise his leg about 150 degrees. He has no edema noted. IMPRESSION: 1. Post-laminectomy syndrome. 2. Chronic low back pain. 3. Lumbar radiculopathy. 4. Degeneration of lumbar spine. 5. Bilateral knee pain. 6. Osteoarthritis. We reviewed the fact that opiate medications are being used to provide analgesia adequate to support activities of daily living, not attempting to achieve a specific pain score on the 0-10 Visual Analog Scale. The current opiate medications are providing sufficient analgesia to allow the patient to participate in activities of daily living. The patient is not exhibiting any aberrant behavior suggestive of drug diversion. The patient is not having any adverse reactions to medications. The patient is not suffering from daytime somnolence or mental acuity changes. The patient is managing opiate-induced constipation with appropriate [id number] agents and dietary considerations. The patient was counseled on concern for caution with operating a motor vehicle while using opiate medications. A physical exam was performed and the patient's functional status was evaluated. All patients with back pain were advised against the bed rest greater than 4 days and were advised to return to normal activities. Pain score assessment was noted and the treatment plan was reviewed with the patient. All current medications, both prescribed and OTC were reviewed and reconciled on the electronic medical record. Tobacco screening was accomplished and smoking cessation was advised when indicated. BMI was noted and diet/exercise modification was recommended for all patients following outside normal parameters. [facility] [address] [place] [address] PAIN MANAGEMENT CONSULTATION Name: SAURABH RAI DENISA Room #: REG [facility].#: [id number] Admission: 12/26/18 Attend Phys: Li Ferreira Discharge: Date of : 39 Report #: [id number] I reviewed with the patient today their responsibilities to safeguard prescription medications, reviewed their responsibility to utilize medications only as prescribed by the physician. They are to seek and receive pain medications only from 1 physician group ( [facility]). They are to use 1 pharmacy and keep the clinic informed if they change pharmacies. Their responsibilities include making followup visits in a timely fashion and to avoid abrupt discontinuation of medication usage. Their responsibilities further include bringing their medications (bottles from the pharmacy with residual pills) to the visit for possible confirmation of pill counts and the patient understands it is their responsibility to submit to random drug screens to ensure both that the medications prescribed are present, and that no other controlled substances are present. All prescriptions provided today were generated electronically. PLAN: 1. We discussed treatment options with the patient today. He has been complaining of constipation. He did have what sounds like to be a barium enema about a month ago. The patient does take MiraLax. We encouraged have him take it twice a day along with his stool softeners. If he finds that he is having loose stools or too many stools, then he can cut back on his MiraLax and only take it daily. The patient also does take lactulose and will continue this on his daily basis. The patient is agreeable with this and verbalizes understanding of the plan. We did also talk about slow movement tea that is filled [id number] in the laxative area that maybe he could try that gentle medication as well. 2. The patient given scripts for his hydrocodone . The patient takes 4 tablets a day, #120 to be released today, 4 and 8 weeks. The patient's MME follows at 39 per the CDC guidelines. This enables him per clinic guidelines to be seen every 3 months. Second medication is ibuprofen 400 mg up to 4 times a day, quantity 120 with 2 additional refills. 3. The patient will be seen in [address] Doug Bauer. The patient is agreeable with this plan of care. 4. The patient is seen today in collaboration with Dr. Doug Bauer. <ELECTRONICALLY SIGNED> By: Li Ferreira 12/27/18 0946 1131 51 Li Ferreira /eddie
== END ==
LOC: PAIN 07:04
DX: M51.16 Intervertebral disc disorders with radiculopathy, lumbar region (principal); M96.1 Postlaminectomy syndrome, not elsewhere classified; M25.561 Pain in right knee; M25.562 Pain in left knee; M19.90 Unspecified osteoarthritis, unspecified site; Z79.899 Other long term (current) drug therapy

== ENCOUNTER 2019-02-06 10:05 | Inpatient (IN) | payer MEDICARE, OTHER ==
[~2019-02-06] VITALS: Ht 172.7 cm; Wt 76.2 kg
[2019-02-06 10:06] VITALS: BP 131/62
--- NOTE | 2019-02-06 10:28 | NUR ---
PT SITTING ON SIDE OF BED TO GIVE URINE SPEC. USING URINAL.
[2019-02-06 10:43] LABS: URINE BILIRUBIN NEGATIVE (Negative); URINE BLOOD 2+ (Negative); URINE COLOR YELLOW; URINE GLUCOSE-RANDOM* NEGATIVE (Negative); URINE KETONES NEGATIVE (Negative); URINE NITRITE-REFLEX NEGATIVE (Negative); URINE PROTEIN (DIPSTICK) NEGATIVE (Negative)
[2019-02-06 10:44] LABS: URINE CLARITY HAZY; URINE LEUKOCYTES-REFLEX 3+ (Negative)
[2019-02-06 11:10] LABS: AMORPHOUS URATES Moderate /LPF (None Seen); CASTS None Seen /LPF (None Seen); SQUAMOUS 0-3 Few /LPF (0-3); URINE WBC-REFLEX >25 Many /HPF (0-5)
[2019-02-06 11:59] LABS: ABSOLUTE NEUTROPHILS 3.7 thou/uL (1.4-8.2); BASOPHILS 0.7 % (0.0-2.0); EOSINOPHILS 1.1 % (0.0-3.0); HEMATOCRIT 37.7 % (42.0-52.0); HEMOGLOBIN 12.9 gm/dL (14.0-18.0); LYMPHOCYTES 24.8 % (24.0-44.0); MCH 31.6 pg (26.0-34.0); MCHC 34.2 g/dL (28.0-37.0); MCV 92.4 fL (80.0-100.0); MONOCYTES 8.5 % (1.0-8.0); PLATELET COUNT 259 thou/uL (150-400); POLYS 64.9 % (36.0-66.0); RBC 4.08 mil/uL (4.50-6.00); RDW 15.6 % (10.5-14.5); WBC 5.7 thou/uL (4.0-11.0)
[2019-02-06 12:09] LABS: CALCIUM 8.7 mg/dL (8.5-10.1); CREATININE 1.5 mg/dL (0.7-1.3); POTASSIUM 3.8 mmol/L (3.5-5.1)
--- NOTE | 2019-02-06 13:24 | NUR ---
THIS ACTIVITY THERAPY TEACHER SPEAKS WITH DR WYNNE AND DISCUSSES PLAN OF CARE. HE STATES THAT HE WAS BREIFLY APPRISED OF THE PT'S SITUATION BY DR GLYNN. STATES THAT FOR PLAN OF CARE HE WOULD LIKE THE FOLLOWING ORDERS: T/O, DR WYNNE. US OF BILAT KIDNEY'S TO R/O PYELONEPHRITIS AND 2MG MORPHINE IV PUSH, ONE TIME. DR WYNNE STATES THAT SHOULD US BE NEGATIVE AND PT RESPONDS TO MEDICATIONS THAT HE COULD POSSIBLY BE DISCHARGED TO HOME WITH AN RX FOR PAIN CONTROL
[2019-02-06 14:46] VITALS: BP 155/98
[2019-02-06 15:19] VITALS: BP 132/71
[2019-02-06 17:12] VITALS: BP 140/77
[2019-02-06 19:37] VITALS: BP 131/62
[2019-02-07 04:08] VITALS: BP 120/67
[2019-02-07 05:43] LABS: HEMOGLOBIN 12.9 gm/dL (14.0-18.0); MCH 31.8 pg (26.0-34.0); MCHC 33.8 g/dL (28.0-37.0); RBC 4.04 mil/uL (4.50-6.00); WBC 5.7 thou/uL (4.0-11.0)
[2019-02-07 05:54] LABS: CALCIUM 8.2 mg/dL (8.5-10.1); CREATININE 1.3 mg/dL (0.7-1.3); MAGNESIUM 2.1 mg/dL (1.8-2.4); POTASSIUM 3.6 mmol/L (3.5-5.1)
--- NOTE | 2019-02-07 08:07 | NUR ---
ASSUMED CARE OF PT AT 0700. PT LEFT IN STABLE CONDITION VIA CART FOR MRI AT 08:07. WILL WAIT FOR RETURN.
[2019-02-07 08:10] VITALS: BP 129/65
--- NOTE | 2019-02-07 09:50 | NUR ---
Nutrition: assess d/t pressure wound on left buttocks. Wound team consult pending. Pt admitted for UTI. PO intake was good prior to admit. Pt thinks his weight has increased, but is unsure by how much. States his pants seem to be tighter than usual. Breakfast tray was in room, pt had eaten ~50%. Will trial To BID. With nutrition intervention in place, consider low nutrition risk.
--- NOTE | 2019-02-07 14:52 | NUR ---
patient admits from [facility] for bronchitis. Patient has electric scooter in room. He reports he resides at home and has caregivers via medicaid 7 days a week 3 hours a day. He has manual wc and walker at home. His PCP is Dr Shira Osborne in [facility]. He reports he has been doing outpatient therapy at [facility] for his knee. He is open to HH if ordered and needed at vt. Patients brother and nephew supportive. His son lives in [place]. PT therapy delgado reports safe for home. [email or web address] following
--- NOTE | 2019-02-07 15:36 | NUR ---
WOUND CONSULT: PT. WAS SEEN TODAY BY DR. KRUEGER AND MYSELF. PT. HAS A SMALL STAGE 2 PRESSURE ULCER TO HIS LEFT BUTTOCK. WOUND IS FREE OF ANY SIGNS OR SYMPTOMS OF INFECTION. RECOMMENDATIONS: WOUND CARE TO LEFT BUTTOCK: GENTLY CLEANSE AREA WITH WOUND CLEANSER OR NORMAL SALINE, APPLY Z-GUARD, LEAVE OPEN TO AIR, COMPLETE CARES DAILY AND PRN. PT. AND STAFF NURSE WERE INSTRUCTED ON PLAN OF CARE.
[2019-02-07 16:17] VITALS: BP 155/77
[2019-02-07 19:45] VITALS: BP 156/83
--- NOTE | 2019-02-07 20:15 | NUR ---
END OF SHIFT. ASSESSMENT COMPLETED. A&O,X4. ROOM AIR. C/O LEFT FLANK PAIN AND CHRONIC BACK PAIN, PAIN MEDS GIVEN ORDERED. BROTHER AND NEPHEW AND BEDSIDE THIS AFTERNOON, ASKED TO SPEAK TO DR. WYNNE. PHYSICIAN NOTIFIED, DR. WYNNE ANSWERED FAMILY QUESTIONS VIA TELEPHONE. SACRAL WOUND, PRINTER SLOTTER FEEDER AND ZGUARD. PT IN STABLE CONDITION.
--- NOTE | 2019-02-08 06:34 | NUR ---
PT CONTINUES TO C/O OF L FLANK PAIN AND IT RADIATES TO LLE. HYDROCODONE CHANGED TO Q4HRS TO BETTER MANAGE PAIN. PT WAS ALSO AWAKE MOST OF THE NIGHT-WITH INSOMNIA.AFEBRILE. SELF REPOSITIONS IN BED-ENCOURAGED TO DO SO.IVF INFUSING. RODRIGUEZ WITH GOOD U/O.
[2019-02-08 07:02] VITALS: BP 145/72
[2019-02-08 16:33] VITALS: BP 150/81
--- NOTE | 2019-02-08 19:23 | NUR ---
ASSUMED CARE OF PT AT 0700. ASSESSMENT COMPLETED. A&O,X4. FORGETFUL AT TIMES. C/O BACK PAIN AND LEFT FLANK PAIN, PAIN MEDS GIVEN ORDERED. LIDOCAINE PATCH IN PLACE LEFT BACK. LEFT BUTTOCK WOUND, ZGUARD APPLIED. DR. GODDARD AT BEDSIDE THIS AFTERNOON FOR TOENAIL TRIMMING, ORDERED HEEL PROTECTOR BOOTS. RODRIGUEZ IN PLACE. NO OTHER CHANGE IN STATUS.
[2019-02-08 20:18] VITALS: BP 142/85
[2019-02-09 04:04] LABS: HEMATOCRIT 39.5 % (42.0-52.0); MCH 31.6 pg (26.0-34.0); MCV 95.9 fL (80.0-100.0); RBC 4.12 mil/uL (4.50-6.00); RDW 16.1 % (10.5-14.5); WBC 7.4 thou/uL (4.0-11.0)
[2019-02-09 04:10] VITALS: BP 136/81
[2019-02-09 04:18] LABS: CALCIUM 8.8 mg/dL (8.5-10.1); POTASSIUM 3.8 mmol/L (3.5-5.1)
[2019-02-09 07:20] VITALS: BP 130/61
--- NOTE | 2019-02-09 08:38 | NUR ---
ASSUMED PT CARE 1900. PT ALERT AND ORIENTED. REASSESSMENT COMPLETE. IV DRESSING C/D/I, NO SIGNS OF INFILTRATION. PRAFO BOOTS APPLIED. PT REPORTED COUGHING/THROWING UP BLOOD AT SHIFT CHANGE, WAS UNABLE TO ASSESS- PT STATED IT WAS THROWN AWAY, INFORMED PT TO CALL NURSE IF IT HAPPENED AGAIN. APPROXIMATELY 0200 PT REPORTED COUGHING FIT THAT CAUSED EMESIS EPISODE X2. EMISIS WAS THICK AND CONTAINED DARK COFFEE GROUND LIKE COLOR. EMERGENCY COMMUNICATIONS DISPATCHER CONTACTED ORDERS RECEIVED AND ACKNOWLEDGED. PT UPDATED ON PLAN OF CARE. APPROXIMATELY 0630 PT REPORTED BACK- MEDICATION GIVEN, SEE EMAR, IMMEDIATELY FOLLOWING PT FELT "GASSY" AND STARTED BURPING THEN VOMITTED A LARGE AMOUNT OF COFFEE GROUND EMESIS. PT ALSO REPORTED HEARTBURN. INFORMATION PASSED ON TO DAY SHIFT NURSE IN REPORT, NURSE TO FOLLOW UP WITH FOR GI CONSULT.
--- NOTE | 2019-02-09 14:46 | NUR ---
PT A&OX4, IV INFUSING FLUIDS IN L HAND W/O COMPS. PT HAD COFFEE GROUND EMESIS DURING THE NOC. DR. WYNNE NOTIFIED THIS AM, GI CONSULT OBTAINED, PLACED PT ON NPO, KUB COMPLETE, OCCULT BLOOD OF EMESIS SENT TO LAB, OCCULT BLOOD OF STOOL NOT SENT YET. PT HAS NOT HAD EMESIS TO THIS TIME.WILL CONT POC.
--- NOTE | 2019-02-09 15:42 | HC ---
[facility] [place] [address] [place] [address] CONSULTATION Name: SAURABH RAI DENISA Room #: 426-P ADM IN M.R.#: [id number] Admission: 02/06/19 ������������������ Attend Phys: Dimitrios Cardoza MD Discharge: ������������������ Date of : 39 Report #: [id number] THIS REPORT FOR: //name// CC: FAM unknown Dimitrios Cardoza HISTORY OF PRESENT ILLNESS: This is a 78-year-old black male who was admitted recently due to low back pain. He is nonambulatory and is being seen by podiatry for elongated, thickened fungal toenails that he cannot care for himself. He denies any other pedal complaints today. PHYSICAL EXAMINATION: Nonpalpable pedal pulses. CFT brisk to all toes. No signs of ischemia or gangrene. No breaks in the skin or signs of infection. All toenails are elongated, thickened, fungal, discolored, with subungual debris and long X 10. There are hammertoe contractures 2 through 5 bilateral. No other obvious gross pedal deformities. The patient is sitting in a contracted state with knees contracted and heels on the bed. PLAN: Following alcohol prep, sharp debridement of mycotic toenails as noted above was performed. There are no breaks in the skin. I do recommend Prevalon heel protective boots and verbal order was provided to the nurse that was present in the room. Will sign off. Thank you for this consult. Please contact me if any new issues arise. ��������������������������������������������� <ELECTRONICALLY SIGNED> ���������������������������������������� By: Rosana Nelson DPM ��������������������������������������������� 02/09/19 1542 1242 0040 Rosana Nelson DPM /nt
[2019-02-09 16:37] LABS: ALBUMIN 2.4 g/dL (3.4-5.0); DIRECT BILIRUBIN < 0.1 mg/dL (<0.1-0.3); LIPASE 72 U/L (73-393); SGOT 18 U/L (15-37); SGPT 13 U/L (30-65); TOTAL BILIRUBIN 0.2 mg/dL (<0.1-1.0); TOTAL PROTEIN 6.8 g/dL (6.4-8.2)
[2019-02-09 19:20] VITALS: BP 115/68
--- NOTE | 2019-02-10 03:23 | NUR ---
ASSESSMENT COMPLETED.PT DENIED PAIN SO FAR.REPOSITIONED WHILE IN BED.NO EMESIS NOTED SO FAR FROM PT.STILL WAITING FOR STOOL SAMPLE.PT REFUSED TO PUT ON HIS PRAFO BOOTS, WAS EDUCATED ON THE NEED,PT STILL REFUSED.IVF INFUSING ORDERED.PT NPOI AT THIS TIME FOR A PROCEDURE IN THE AM.CALL LIGHT WITHIN REACH.
[2019-02-10 04:10] VITALS: BP 131/67
[2019-02-10 05:08] LABS: HEMATOCRIT 28.8 % (42.0-52.0); MCH 32.5 pg (26.0-34.0); MCHC 34.8 g/dL (28.0-37.0); MCV 93.3 fL (80.0-100.0); RBC 3.09 mil/uL (4.50-6.00); RDW 15.8 % (10.5-14.5); WBC 8.2 thou/uL (4.0-11.0)
[2019-02-10 05:36] LABS: ALBUMIN 2.1 g/dL (3.4-5.0); CALCIUM 7.9 mg/dL (8.5-10.1); CREATININE 1.1 mg/dL (0.7-1.3); MAGNESIUM 1.9 mg/dL (1.8-2.4); POTASSIUM 4.3 mmol/L (3.5-5.1); TOTAL BILIRUBIN 0.2 mg/dL (<0.1-1.0); TOTAL PROTEIN 6.3 g/dL (6.4-8.2)
[2019-02-10 07:45] VITALS: BP 127/60
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
[2019-02-10 19:14] VITALS: BP 128/75
--- NOTE | 2019-02-10 19:19 | NUR ---
WENT TO GI FOR EGD. AAOX3 PLEASANT AND COOPERTIVE. C/O LEFT SIDE PAIN THAT GOES FROM LEFT FLANK TO FOOT GOOD RELIEF WITH MEDICAION. ABDOMEN FIRM AND ROUND - 1000 CC TAP WATER EMEMA GIVIN WITH MODERATE AMOUNT OF FIRM BROWN STOOL ON COMMODE. UP TO COMMODE WITH MAX ASSIST. POOR APPETITE. IV INFUSING INTO LEFT HAND WITHOUT REDDNESS OR EDEMA. RODRIGUEZ D/C'D. Z-GAURD TO LEFT BUTTOCK. LUNGS CLEAR ON ROOM AIR. MOVES WELL IN BED.
--- NOTE | 2019-02-11 04:07 | NUR ---
ASSESSMENT COMPLETED.PT'S ABD STILL DISTENDED AND FIRM.NO BM NOTED THIS SHIFT.PT C/O L FLANK PAIN,MANAGED WITH PO AND IV MED.VOIDING WELL POST CATHETER REMOVAL.PT REPOSITIONED PER PT'S REQUEST.PT RESTING COMFORTABLY ON HIS BED AT THIS TIME.CALL LIGHT WITHIN REACH.
[2019-02-11 05:22] VITALS: BP 115/44
[2019-02-11 06:05] LABS: HEMATOCRIT 24.3 % (42.0-52.0); HEMOGLOBIN 8.4 gm/dL (14.0-18.0); MCH 32.7 pg (26.0-34.0); MCHC 34.7 g/dL (28.0-37.0); MCV 94.4 fL (80.0-100.0); RBC 2.58 mil/uL (4.50-6.00); RDW 16.3 % (10.5-14.5); WBC 8.5 thou/uL (4.0-11.0)
[2019-02-11 06:15] LABS: CALCIUM 8.2 mg/dL (8.5-10.1); CREATININE 0.9 mg/dL (0.7-1.3)
[2019-02-11 14:56] VITALS: BP 130/52
--- NOTE | 2019-02-11 15:51 | NUR ---
WOUND FOLLOW UP: PT. WAS SEEN TODAY BY THE WOUND CARE TEAM. PT. REPORTS DECRESSED PAIN OF HIS RIGHT BUTTOCK. PT. DRESSING IS C/D/I AND PT. HAS NO COMPLAINTS AT THIS TIME. RECOMMENDATIONS: CONTINUE WITH CURRENT PLAN OF CARE. PT. AND STAFF NURSE WERE INSTRUCTED ON PLAN OF CARE.
--- NOTE | 2019-02-11 17:15 | NUR ---
spoke with rn no bowel movement at this time. Patient worked with PT who cont to report safe for home at [facility]. Cont plan for home possible HH at [facility].
--- NOTE | 2019-02-11 19:50 | NUR ---
PT GIVEN ENEMA ORDERED WITH RESULT OF MED BOWEL MOVEMENT OF PEBBLE LIKE STOOL.
[2019-02-11 20:08] VITALS: BP 140/60
--- NOTE | 2019-02-12 02:54 | NUR ---
PT NEEDS TO BE REPOSITIONED. HAD SOME MUCOUSY RECTAL DISCHARGE. PASSING FLATUS.ABDOMEN IS DISTENDED. HYPOACTIVE BOWEL SOUNDS. PT DENIES ANY NAUSEA OR VOMITING. BLE ELEVATED. ZGURAD APPLIED TO BOTTOM NEEDED. PT APPEARS TO BE RESTING MOST OF THIS NIGHT. IVF INFUSING VIA L HAND. WILL CONTINUE WITH POC TILL EOS.
[2019-02-12 04:30] VITALS: BP 123/52
[2019-02-12 06:32] LABS: HEMATOCRIT 22.6 % (42.0-52.0); HEMOGLOBIN 7.7 gm/dL (14.0-18.0); MCH 32.1 pg (26.0-34.0); MCV 94.4 fL (80.0-100.0); RBC 2.4 mil/uL (4.50-6.00); RDW 16.1 % (10.5-14.5); WBC 8.2 thou/uL (4.0-11.0)
[2019-02-12 06:47] LABS: CALCIUM 8.2 mg/dL (8.5-10.1); CREATININE 0.9 mg/dL (0.7-1.3); MAGNESIUM 1.9 mg/dL (1.8-2.4); POTASSIUM 3.8 mmol/L (3.5-5.1)
[2019-02-12 07:41] LABS: FOLIC ACID 19.7 ng/mL (8.6-58.9)
[2019-02-12 08:07] VITALS: BP 130/68
--- NOTE | 2019-02-12 14:32 | NUR ---
WOUND FOLLOW UP: PT. WAS SEEN TODAY BY WOUND CARE TEAM. PT. SUGICAL INCSION IS WELL APPROXIMATED AND PT. HAS NO COMPLAINTS. RECOMMENDATIONS: CONTINUE WITH CURRENT PLAN OF CARE. PT. AND STAFF NURSE WERE INSTRUCTED ON PLAN OF CARE.
[2019-02-12 17:35] VITALS: BP 154/62
[2019-02-12 19:15] VITALS: BP 156/79
--- NOTE | 2019-02-12 19:49 | NUR ---
ASSUMED CARE OF PT AT 0700. ASSESSMENT COMPLETED. A&O,X4. ROOM AIR. DENIES BACK PAIN, DID NOT REQUEST PAIN MEDS. LIDOCAINE PATCH IN PLACE LEFT BACK. TOLERATING CLEARS DIET, NO N/V. PLAN FOR COLOSTOMY IN AM. BOWEL PREP IN PROGRESS. LEFT BUTTOCK WOUND, Z GUARD IN PLACE AND Q2H TURN. PT IN STABLE CONDITION.
[2019-02-13 04:10] VITALS: BP 154/75
--- NOTE | 2019-02-13 04:27 | NUR ---
PATIENTS CARES WERE ASSUMED AT SHIFT CHANGE.PATIENT WAS ASSESSED AND MEDS WERE PASSED. PATIENT WAS GIVEN A PREP FOR A COLONOSCOPY IN THE MORNING. PATIENT HAS DRANK THE MAJORITY OF THE PREP WITH NO RESULTS OTHER THAN ABDOMIN DISTENTION. PATIENT IS NOW WORRIED ABOUT HIMSELF AND STATED THIS HAS HAPPENED BEFORE AT . HOURLY ROUNDING WAS DONE. PATIENT DID SLEEP ABOUT 6 HOURS. THE BED IS IN A LOW AND LOCK POSTION. THE BED ALARM IS ON.
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
[2019-02-13 08:19] VITALS: BP 144/66
[2019-02-13 10:35] LABS: HEMATOCRIT 24.7 % (42.0-52.0); HEMOGLOBIN 8.4 gm/dL (14.0-18.0); MCHC 34.1 g/dL (28.0-37.0); MCV 93.9 fL (80.0-100.0); RBC 2.63 mil/uL (4.50-6.00); WBC 11.6 thou/uL (4.0-11.0)
--- NOTE | 2019-02-13 10:38 | P ---
[facility] [place] [address] PROCEDURE REPORT Name: FREDISAURABH DENISA Room #: 426-P ADM IN M.R.#: [id number] Admission: 02/06/19 ������������������ Attend Phys: Dimitrios Cardoza MD Discharge: ������������������ Date of : 39 Report #: [id number] THIS REPORT FOR: //name// CC: FAM unknown Dimitrios Cardoza MD DATE OF SERVICE: 02/10/2019 PROCEDURE PERFORMED: Upper endoscopy. HISTORY OF PRESENT ILLNESS: The patient is a 78-year-old male who was admitted with low back and left flank pain, was then diagnosed with urinary tract infection and pyelonephritis. The patient had an episode of coffee-ground type emesis. Also complains of some mild mid epigastric abdominal pain. No previous history of upper GI bleed, is now on PPI therapy. Plan is for upper endoscopy. DESCRIPTION OF PROCEDURE: The risks and benefits of the procedure were explained to the patient, those risks including but not limited to bleeding, perforation, the risk of sedation. He understood these risks and gave informed consent. Sedation was given using propofol per Anesthesia. Next, using a standard Olympus upper endoscope, the scope was placed in the patient's mouth and advanced under direct vision through the esophagus, stomach and into the second portion of the duodenum. The larynx was normal in appearance. The esophagus was somewhat dilated throughout. There was food and dark liquid noted in the distal esophagus, refluxing up during the procedure. I was able to clear this primarily, mild esophagitis was noted in the distal esophagus, hiatal hernia was noted. Large amount of food residual was noted throughout the stomach. This did limit visualization significantly in the stomach and again the patient was refluxing up during the procedure. No obvious ulcerations were noted or bleeding, but dark black liquid was noted in the stomach. The pylorus was normal and patent. The duodenal bulb, first and second portion were all normal. At this point, the scope was then withdrawn and the procedure terminated. The patient tolerated the procedure well. IMPRESSION: 1. Large food residual within the stomach, suggesting the possibility of gastroparesis. 2. Hiatal hernia. 3. Mild esophagitis in the distal esophagus. No active bleeding. 4. Dilated esophagus, suggesting the possibility of achalasia. RECOMMENDATIONS: 1. Continue PPI therapy. 2. I would recommend an upper GI in the near future for further evaluation. [address] [address] PROCEDURE REPORT Name: SAURABH RAI DENISA Room #: 426-P [facility] IN M.R.#: [id number] Admission: 02/06/19 ������������������ Attend Phys: Dimitrios Cardoza MD Discharge: ������������������ Date of : 39 Report #: [id number] Thank you for allowing me to participate in his care. ��������������������������������������������� <ELECTRONICALLY SIGNED> ���������������������������������������� By: Rafael Dash MD ��������������������������������������������� 02/13/19 1038 0953 1350 Rafael Dash MD /nt
--- NOTE | 2019-02-13 11:06 | NUR ---
Changed nutrition status from low to moderate risk
--- NOTE | 2019-02-13 11:18 | NUR ---
Assumed pt care at 7am.Pt in bed with distended abdomen related to bowel prep given last night without result.Asked noc rn if Gi doc was notified but she said no.Dr Cook notified and colonoscopy was cancelled for today and said that pt will be seen later today.Am meds given and well tolerated.Bed bath given and repositioned q2h in bed for comfort.Will continue to monitor.
--- NOTE | 2019-02-13 16:46 | NUR ---
WOUND FOLLOW UP: PT. WAS SEEN TODAY BY DR. KRUEGER AND MYSELF. PT. WOUND IS EPITHILIZED AND HEALTHY IN APPEARENCE. PT. HAS NO COMPLAINTS. RECOMMENDATIONS: CONTINUE WITH CURRENT PLAN OF CARE. PT. AND STAFF NURSE WERE INSTRUCTED ON PLAN OF CARE.
[2019-02-13 16:53] VITALS: BP 162/76
[2019-02-13 19:25] VITALS: BP 151/66
[2019-02-14 03:30] VITALS: BP 155/91
--- NOTE | 2019-02-14 04:33 | NUR ---
PT WAS ABLE TO FINISH HIS BOWEL PREP BEFORE [place].TAP WATER ENEMA ADMINSTERED X1.PT CONT TO HAVE LOOSE BM WHILE IN BED.IVF INFUSING ORDERED.PT REPOSITIONED WHILE IN BED.ABD STILL DISTENDED AND FIRM, PT STATED MUCH RELIEVE AFTER THE ENEMA.Z GUARD TO HIS SACRUM.PT REF TO PUT ON HIS PRAFO BOOTS,EDUCATION GIVEN.PT RESTING ON HIS BED AT THIS TIME.CALL LIGHT WITHIN REACH.
[2019-02-14 07:40] VITALS: BP 167/79
--- NOTE | 2019-02-14 11:50 | NUR ---
Assumed pt care at 7am.Assessment completed.vss but elevated bp noted.Dr Reina notified,he wanted pt take po bp med with sips of water.Additional tap water enema given and pt stool appeared to be clear.Received call from Meredith gi sawyer cork slabs,updates given.At 1100,pt left for colonoscopy per bed.Will continue to monitor.
[2019-02-14 15:28] LABS: HEMATOCRIT 27.2 % (42.0-52.0); HEMOGLOBIN 9.1 gm/dL (14.0-18.0)
[2019-02-14 16:00] VITALS: BP 131/63
--- NOTE | 2019-02-14 16:25 | NUR ---
WOUND FOLLOW UP: PT. WAS SEEN TODAY BY DR. KRUEGER AND MYSELF. PT. BUTTOCK IS SIGNIFICANTLY BETTER. RECOMMENDATIONS: CONTINUE WITH CURRENT PLAN OF CARE. PT. AND STAFF NURSE WERE INSTRUCTED ON PLAN OF CARE.
[2019-02-14 19:55] VITALS: BP 145/66
--- NOTE | 2019-02-15 02:26 | NUR ---
PT DENIED PAIN SO FAR.PT IN A BETTER SPIRIT THAN HE WAS THE PREVIOUS NIGHT.PT STILL WITH BOGGY HEELS,BUT HE REFUSED TO USE HIS PRAFO BOOTS WHILE IN BED.PT SLEEPING ON HIS BED AT THIS TIME.FALL PRECAUTIONS IN PLACE,CALL LIGHT WITHIN REACH.
[2019-02-15 04:20] VITALS: BP 133/66
[2019-02-15 08:22] VITALS: BP 165/77
--- NOTE | 2019-02-15 08:33 | NUR ---
ASSUMED CARE OF PT AT 0700. A&O,X4. DENIES PAIN. ROOM AIR. NPO SINCE MIDNIGHT. AM MEDS HELD. PT LEFT IN STABLE CONDITION VIA BED FOR GASTRIC EMPTYING STUDY AT 0833. WILL WAIT FOR RETURN.
--- NOTE | 2019-02-15 13:30 | NUR ---
WOUND CARE FOLLOW UP; ROUNDING WITH DR MATT KRUEGER TODAY. DR KRUEGER SPOKE WITH PATIENT AND ADRESSED ALL PERINENT ISSUES. NO NEW ISSUES IDENTIFIED. CONTINUE CURRENT PLAN RN NOTIFIED
--- NOTE | 2019-02-16 00:54 | NUR ---
PT WAS UPSET AT THE START OF SHIFT BECAUSE HE HAD BEEN PROMISED A BATH THE WHOLE DAY AND HE DID NOT GET IT. PT FINALLY GOT IT IN THIS SHIFT, TOOK HIS HS MEDS AND HE IS APPRECIATIVE AND APOLOGETIC TO US-ABDOMEN STILL DISTENDED BUT PASSING GAS AND BOWEL SOUNDS ARE PRESENT. AFEBRILE. URINATES VIA URINAL.
[2019-02-16 05:12] VITALS: BP 133/79
[2019-02-16] MEDS ORDERED: MIRALAX17 GM PO (09:12)
[2019-02-16] MEDS ORDERED: REGLAN 10 MG TA10 MG PO (09:12)
[2019-02-16 09:45] VITALS: BP 133/79
[2019-02-16 09:54] VITALS: BP 137/91
[2019-02-16 10:08] VITALS: BP 137/91
--- NOTE | 2019-02-16 11:40 | NUR ---
ASSUMED CARE OF PT AT 0700. ASSESSMENT COMPLETED. A&O,X4. DENIES PAIN, REFUSED LIDOCAINE PATCH AND DID NOT REQUEST ANY PAIN MEDS. ROOM AIR. SKIN - ABD SCARS AND HEALING PRESSURE WOUND LEFT BUTTOCK, PHOTO TAKEN. DISCHARGE ORDERS. PT DRESSED IN CLOTHES. CONTINUING HH, HH NURSE SAMSON NOTIFIED. PT STATES HE FEELS SAFE GOING HOME. NEW SCRIPTS GIVEN AND FAXED TO PHARMACY. PT LEFT IN STABLE CONDITION VIA MOTORIZED WHEELCHAIR AT 11:31. IV REMOVED BEFORE LEAVING.
--- NOTE | 2019-02-19 17:19 | P ---
[facility] [place] [address] PROCEDURE REPORT Name: SAURABH RAI DENISA Room #: 426-P [facility] IN M.R.#: [id number] Admission: 02/06/19 ������������������ Attend Phys: Dimitrios Cardoza MD Discharge: 02/16/19 ������������������ Date of : 39 Report #: [id number] THIS REPORT FOR: //name// CC: FAM unknown Dimitrios Cardoza MD DATE OF SERVICE: 02/14/2019 PROCEDURE: Diagnostic colonoscopy. The patient of Dr. Dimitrios Cardoza and this is Dr. Rody Cook recording. INDICATION FOR PROCEDURE: This patient has an iron-deficiency anemia. He had an upper GI bleed recently with vomiting of coffee-ground emesis and some red emesis, uncertain etiology. The EGD did not reveal the source of this blood loss. Colonoscopy is being done as the next step in the workup for his anemia. He will need to have a small bowel PillCam as well to evaluate for possible small intestinal blood loss, but today we are proceeding with colonoscopy. DESCRIPTION OF PROCEDURE: Informed consent for this procedure was obtained prior to the administration of any medication. The risks of the procedure, which include bleeding, perforation, infection, complications of sedation and the possibility I could miss something have been explained to the patient and he has indicated his consent by signing. Propofol was slowly titrated before and during this procedure for the patient's comfort by the anesthesia service. A digital rectal exam was performed and I did not palpate any abnormalities other than some skin tags internally. Then, the Olympus colonoscope was introduced through the anal sphincter and advanced under direct visualization to the terminal ileum. Findings are noted on withdrawal of the scope. The terminal ileal mucosa appears normal. Cecum, normal mucosa. There was some stool in the cecum that I had to clear up, but I was able to clear it fairly easily and no abnormalities were seen. Ascending colon, normal mucosa. Hepatic flexure, normal mucosa. Transverse colon, normal mucosa. Splenic flexure, normal mucosa. Descending colon, normal mucosa. At approximately 40 cm from the anal verge, there are several diverticula. These are all uncomplicated, but they do seem to be in the sigmoid colon and extend down through the sigmoid colon. There is no bleeding, no perforation, no sign of diverticulitis here, just simple uncomplicated diverticulosis. Rectum, normal mucosa. Retroflex view did not reveal any further abnormalities. The scope was withdrawn slowly through the anal canal. I only saw skin tags as I was coming out with the scope. The patient tolerated the procedure well. He went to the recovery room in stable condition. [address] [address] PROCEDURE REPORT Name: SAURABH RAI DENISA Room #: 426-P [facility] IN M.R.#: [id number] Admission: 02/06/19 ������������������ Attend Phys: Dimitrios Cardoza MD Discharge: 02/16/19 ������������������ Date of : 39 Report #: [id number] IMPRESSION: 1. Uncomplicated sigmoid diverticulosis. 2. Anal skin tags internally. RECOMMENDATIONS: For him to proceed with a small bowel video capsule. This can be done as an outpatient on a nonemergent basis. We will start him on a heart healthy diet. Recheck his H and H in the morning. I think he also needs to have an upper GI with esophagram to evaluate the dilated esophagus and to evaluate for possible achalasia. Thank you very much once again for allowing me to participate in his care. ��������������������������������������������� <ELECTRONICALLY SIGNED> ���������������������������������������� By: Rody Cook DO ��������������������������������������������� 02/19/19 1719 1351 0218 Rody Cook DO /nt
== END 2019-02-16 11:34 | disposition home health service (06) | DRG 871 ==
LOC: ER 10:05 → 4E 14:27 → EROBS 14:27 → 4E 15:18
PROVIDERS: Emergency Medicine; Hospitalist; Internal Medicine Gastroenterology; Nurse Practitioner Acute Care; Nurse Practitioner Family; ADMIT Internal Medicine
PROC: 0DJ08ZZ Inspection of Upper Intestinal Tract, Via Natural or Artificial Opening Endoscopic (ICD-10-PCS; principal; 2019-02-10)
PROC: 0DJD8ZZ Inspection of Lower Intestinal Tract, Via Natural or Artificial Opening Endoscopic (ICD-10-PCS; 2019-02-14)
DX: A41.9 Sepsis, unspecified organism (principal); E43 Unspecified severe protein-calorie malnutrition; K22.11 Ulcer of esophagus with bleeding; N12 Tubulo-interstitial nephritis, not specified as acute or chronic; N17.9 Acute kidney failure, unspecified; D62 Acute posthemorrhagic anemia; G62.9 Polyneuropathy, unspecified; M62.84 Sarcopenia; N40.1 Benign prostatic hyperplasia with lower urinary tract symptoms; R33.8 Other retention of urine; I10 Essential (primary) hypertension; M19.90 Unspecified osteoarthritis, unspecified site; G89.29 Other chronic pain; M54.16 Radiculopathy, lumbar region; J40 Bronchitis, not specified as acute or chronic; K44.9 Diaphragmatic hernia without obstruction or gangrene; K64.4 Residual hemorrhoidal skin tags; K59.00 Constipation, unspecified; L89.322 Pressure ulcer of left buttock, stage 2; L89.312 Pressure ulcer of right buttock, stage 2; K31.84 Gastroparesis; Z68.25 Body mass index [BMI] 25.0-25.9, adult; Z88.8 Allergy status to other drugs, medicaments and biological substances; Z90.49 Acquired absence of other specified parts of digestive tract; Z98.1 Arthrodesis status; K57.30 Diverticulosis of large intestine without perforation or abscess without bleeding
CPT/HCPCS: 10084; 62110; 62900; 70005

== ENCOUNTER → 2019-03-26 | Outpatient (CLI) | payer MEDICARE, OTHER ==
[~2019-03-26] VITALS: Ht 175.3 cm; Wt 68.0 kg
[~2019-03-26] MED LIST changes: +MIRALAX17 G1 PO; +OMEPRAZOLE40 MG PO; +REGLAN 10 MG TA10 MG PO
[2019-03-26 12:23] VITALS: BP 142/81
--- NOTE | 2019-03-26 12:27 | NUR ---
Pain Clinic Assessment: 1. History of Osteoarthritis: Left Lower Extremity Left Upper Extremity Right Lower Extremity Right Upper Extremity History of Rheumatoid Arthritis: Not Applicable 2. Height: 5 ft. 9 in. 175.3 cm. Weight: 150.0 lb. oz. 68.040 kg. Patient's BMI: 22.1 3. Vital Signs: BP: 142/81 Pulse: 85 Resp: 18 Temp: 02 Sat: 94 ECG Mon: 4. Pain Intensity: 6 5. Fall Risk: Dizziness: N Needs help standing or walking: N Fallen in the last 3 months: N Fall risk comments: 6. Patient on Blood Thinner: None 7. History of Hypertension: Y 8. Opioid Therapy greater than 6 weeks: Y Opiate Contract Signed: 06/01/16 9. Risk Assessment Tool Provided: 3 low risk 10. Functional Assessment Tool: 11. Recreational Drug Use: Never Drug Type: Tobacco Use: Never Smoker Tobacco Type: Amount or Packs/day: How Many Years: Alcohol Use: No Frequency: Quant:
--- NOTE | 2019-03-27 07:39 | HPC ---
[facility] [address] [address] PAIN MANAGEMENT CONSULTATION Name: SAURABH RAI DENISA Room #: PRE STEVE Schneider#: [id number] Admission: ������������������ Attend Phys: Li Ferreira Discharge: ������������������ Date of : 39 Report #: [id number] THIS REPORT FOR: //name// CC: Li Ferreira FAM unknown DATE OF SERVICE: 03/26/2019 CHIEF COMPLAINT: Chronic low back pain with lumbar radiculopathy, status post lumbar laminectomy syndrome. HISTORY OF PRESENT ILLNESS: This is a very pleasant 79-year-old gentleman who returns to the pain clinic today for his ongoing chronic low back pain as well as bilateral legs and foot pain. He tells me that he was in the hospital recently here at [facility] for bowel obstruction. He tells me that while he was there, they also found that he had some bleeding, unsure of the location in his stomach or small intestine. He tells me that he does not take MiraLax on a daily basis to avoid any constipation and he is feeling better. He tells me that he also had a small sore on his buttock that is slowly healing. The patient tells me that he still would like to have his knees replaced and has continued to do physical therapy. He has been seen in the [facility] 3 times a week to try to increase his strength and ability to straighten his legs prior to having his knees replaced. He would like a refill of his medications today telling me that he takes hydrocodone 3 tablets a day. His pain score is 6 today, mostly a constant, achy, burning pain, worse with walking and activity, better with his medications and resting. ALLERGIES: DARVON. MEDICATIONS: Ibuprofen 400 mg every 6 hours, omeprazole 40 mg daily, MiraLax daily, hydrocodone 10/325 up to 4 times a day, gabapentin 300 mg daily, Urecholine 10 mg t.i.d., Flexeril 10 mg b.i.d. p.r.n., Colace 100 mg daily, prostate health daily, Myrbetriq 25 mg daily, Toprol-XL 50 mg daily. PQRS: 1. He has osteoarthritis in his upper and lower extremities as well as in his spine. He denies any rheumatoid arthritis. 2. Height is 5 feet 8 inches, weight is 150, BMI is 22. 3. Vital signs: Blood pressure 142/81, pulse is 85, respirations 18, oxygen saturation is 94%. 4. Pain score is 6/10 today. 5. Fall risk. He denies dizziness. He does not need help with walking or standing, but he is in a scooter today. He has not fallen in the last 3 months. 6. The patient is not on any blood thinners, but he does take medicine for hypertension. [address] [address] PAIN MANAGEMENT CONSULTATION Name: SAURABH RAI DENISA Room #: PRE Onael Schneider#: [id number] Admission: ������������������ Attend Phys: Li Ferreira Discharge: ������������������ Date of : 39 Report #: [id number] 7. His opioid therapy is greater than 6 weeks; therefore, an opioid signed contract is on the chart. His risk assessment tool is low. His functional assessment is 27/70. 8. Recreational drug use, he denies. He is not a smoker and does not drink alcohol. We did check the prescription medication records and says that he is feeling appropriately from Dr. Doug Bauer for his medications. We will check a urine drug screen on this patient today due to negative hydrocodone screen on his last one in August, it was an oral screen, so we will repeat with a urine screen today. The patient tells me that he took his last medication this morning. He tells me he safeguards his medications at all times. PHYSICAL EXAMINATION: GENERAL: This is a well-developed, well-nourished black gentleman who appears his stated age. He is alert and orientated and is a good historian. Placing his pain score today at 6/10. HEENT: Normocephalic, atraumatic. Extraocular eye muscles are intact. Mucous membranes are moist. Speech is fluent. EXTREMITIES: No clubbing, no cyanosis. MUSCULOSKELETAL: Muscle strength is equal in his upper extremities, judged to be 5/5. Lower extremities judged to be 4/5 bilaterally. He is able to raise his legs and has good flexion and extension. No edema noted. The patient tells me he has a small decubitus on his coccyx area, that was not visualized today. IMPRESSION: 1. Post-laminectomy syndrome. 2. Chronic low back pain. 3. Lumbar radiculopathy. 4. Degeneration of the lumbar spine. 5. Bilateral knee pain. 6. Osteoarthritis. We reviewed the fact that opiate medications are being used to provide analgesia adequate to support activities of daily living, not attempting to achieve a specific pain score on the 0-10 Visual Analog Scale. The current opiate medications are providing sufficient analgesia to allow the patient to participate in activities of daily living. The patient is not exhibiting any aberrant behavior suggestive of drug diversion. The patient is not having any adverse reactions to medications. The patient is not suffering from daytime somnolence or mental acuity changes. The patient is managing opiate-induced constipation with appropriate slbq-dtx-xzlmiqy agents and dietary considerations. The patient was counseled on concern for caution with operating a motor vehicle while using opiate medications. A physical exam was performed and the patient's functional status was evaluated. [facility] [address] [place] [address] PAIN MANAGEMENT CONSULTATION Name: SAURABH RAI DENISA Room #: PRE [facility].#: [id number] Admission: ������������������ Attend Phys: Li Ferreira Discharge: ������������������ Date of : 39 Report #: [id number] All patients with back pain were advised against the bed rest greater than 4 days and were advised to return to normal activities. Pain score assessment was noted and the treatment plan was reviewed with the patient. All current medications, both prescribed and OTC were reviewed and reconciled on the electronic medical record. Tobacco screening was accomplished and smoking cessation was advised when indicated. BMI was noted and diet/exercise modification was recommended for all patients following outside normal parameters. I reviewed with the patient today their responsibilities to safeguard prescription medications, reviewed their responsibility to utilize medications only as prescribed by the physician. They are to seek and receive pain medications only from 1 physician group ([facility]). They are to use 1 pharmacy and keep the clinic informed if they change pharmacies. Their responsibilities include making followup visits in a timely fashion and to avoid abrupt discontinuation of medication usage. Their responsibilities further include bringing their medications (bottles from the pharmacy with residual pills) to the visit for possible confirmation of pill counts and the patient understands it is their responsibility to submit to random drug screens to ensure both that the medications prescribed are present, and that no other controlled substances are present. All prescriptions provided today were generated electronically. PLAN: 1. We discussed treatment options with the patient today. The patient tells me that he takes #3 hydrocodone a day. This is a decrease of his 4 a day, so therefore we will decrease his hydrocodone 10/325 to #90 for today for an 8-week release. This places the patient's morphine milliequivalent at 30 MME per day while under the CDC guidelines. 2. Ibuprofen 400 mg q.i.d. #120 with 2 additional refills was also given. I did question the patient if the gastrointestinal doctors did decrease this or told him to refrain from ibuprofen. He tells me that they have not, so we will continue this as prescribed. I told him that this could cause stomach problems and bleeding and if he does follow up with them and they tell him to stop that he should listen to them, stop this medication and let us know. The patient verbalizes understanding. 3. We collected a urine drug screen on this patient today. It has been at least 6 months since our last one, that was oral swab that was negative for his hydrocodone. It could be that his secretions were dry, but we will recheck a urine today. 4. The patient will follow up in 3 months' time period for his medications. He [facility] [address] [place] [address] PAIN MANAGEMENT CONSULTATION Name: SAURABH RAI DENISA Room #: PRE STEVE Schneider#: [id number] Admission: ������������������ Attend Phys: Li Ferreira Discharge: ������������������ Date of : 39 Report #: [id number] verbalizes understanding. The patient is seen today with Dr. Doug Bauer who collaborated care. ��������������������������������������������� <ELECTRONICALLY SIGNED> ���������������������������������������� By: Li Ferreira ��������������������������������������������� 03/27/19 0739 1414 0141 Li Ferreira /nt
== END ==
LOC: PAIN 06:51
DX: M96.1 Postlaminectomy syndrome, not elsewhere classified (principal); M54.5 Low back pain; G89.29 Other chronic pain; M47.26 Other spondylosis with radiculopathy, lumbar region; M25.561 Pain in right knee; M25.562 Pain in left knee; M19.90 Unspecified osteoarthritis, unspecified site

== ENCOUNTER → 2019-06-26 | Outpatient (CLI) | payer MEDICARE, OTHER ==
[~2019-06-26] VITALS: Ht 170.2 cm; Wt 68.0 kg
[2019-06-26 09:15] VITALS: BP 136/69
--- NOTE | 2019-06-26 09:28 | NUR ---
Pain Clinic Assessment: 1. History of Osteoarthritis: Left Lower Extremity Left Upper Extremity Right Lower Extremity Right Upper Extremity History of Rheumatoid Arthritis: Not Applicable 2. Height: 5 ft. 7 in. 170.2 cm. Weight: 150.0 lb. oz. 68.040 kg. Patient's BMI: 23.5 3. Vital Signs: BP: 136/69 Pulse: 75 Resp: 16 Temp: 02 Sat: 96 ECG Mon: 4. Pain Intensity: 5 5. Fall Risk: Dizziness: N Needs help standing or walking: Y Fallen in the last 3 months: N Fall risk comments: 6. Patient on Blood Thinner: None 7. History of Hypertension: Y 8. Opioid Therapy greater than 6 weeks: Y Opiate Contract Signed: 06/01/16 9. Risk Assessment Tool Provided: 3 low risk 10. Functional Assessment Tool: 11. Recreational Drug Use: Never Drug Type: Tobacco Use: Never Smoker Tobacco Type: Amount or Packs/day: How Many Years: Alcohol Use: No Frequency: Quant:
--- NOTE | 2019-06-27 13:37 | HPC ---
[facility] [address] [address] PAIN MANAGEMENT CONSULTATION Name: SAURABH RAI DENISA Room #: REG STEVE Jennie#: [id number] Admission: 06/26/19 Attend Phys: Li Ferreira Discharge: Date of : 39 Report #: [id number] THIS REPORT FOR: //name// CC: Li Ferreira FAM unknown DATE OF SERVICE: 06/26/2019 CHIEF COMPLAINT: Chronic low back pain with lumbar radiculopathy, post-laminectomy syndrome, bilateral knee pain. HISTORY OF PRESENT ILLNESS: This is a pleasant 79-year-old gentleman who returns to the Pain Clinic today for refill of his medications that he uses to help treat his low back and bilateral leg pain as well as his bilateral knee pain. He has been working with Physical Therapy 2 times a week to try and strengthen his lower extremities and work on his range of motion with his knees, so he can have his right knee replaced. He tells me he uses a treadmill and the bike as well as his exercises. He still is not able to straighten his leg completely, but he does have greater extension that he did 2 months ago when we saw him. The patient does complain of pain that is a 5/10 today, worse with activity and walking. He is in electric scooter today, tells me his medications are very beneficial for controlling his pain. He denies any problems with constipation as long as he eats right and uses Dulcolax every other day. ALLERGIES: DARVON. CURRENT LIST OF MEDICATIONS: Hydrocodone 10/325 three times a day p.r.n., ibuprofen 400 mg 3-4 times a day p.r.n., MiraLax, omeprazole, gabapentin, Urecholine, Flexeril, Colace, prostate health caplet, Myrbetriq, and Toprol-XL. PATIENT'S PQRS: 1. He has osteoarthritis in his upper and lower extremities as well as his knees and spine. He denies any rheumatoid arthritis. 2. Height is 5 feet 7 inches, weight is 150, BMI is 23. 3. VITAL SIGNS: Blood pressure 136/69, pulse is 75, respirations 16, oxygen sat is 96. 4. Pain score is 5/10. 5. Denies dizziness. Does need help walking and standing. He is in electric wheelchair today, but does ambulate as well. He has not fallen in the last 3 months. The patient is not on any blood thinners, but does take medicine for hypertension. His opioid therapy is greater than 6 weeks; therefore, an opioid signed contract is on the chart. 6. Risk assessment tool is low. Functional assessment is 27/70. 7. Recreational drug use, he denies. He is not a smoker [place] [address] PAIN MANAGEMENT CONSULTATION Name: SAURABH RAI DENISA Room #: REG STEVE Schneider#: [id number] Admission: 06/26/19 Attend Phys: Li Ferreira Discharge: Date of : 39 Report #: [id number] alcohol. According to the prescription monitoring system, the patient is filling appropriately for his medications. We did check a random drug screen on his last visit that is appropriate for his medications. There were some metabolites from alcohol. The patient tells me he does not drink on a daily basis. He occasionally will have a shot; this may be why there was metabolites present. Otherwise, his drug screen was appropriate for his medication he does take. PHYSICAL EXAMINATION: GENERAL: This is a well-developed, well-nourished black gentleman who appears his stated age. He is alert and orientated. He is a good historian. His pain score today is 5/10 today. HEENT: Normocephalic, atraumatic. Extraocular eye muscles are intact. Speech is fluent. EXTREMITIES: No clubbing, no cyanosis. Does have some arthritic nodules in his hands. MUSCULOSKELETAL: Muscle extremity strength judged equal in his upper extremities judged to be 5/5. His lower extremity strength judged to be 4/5 bilaterally. Does complain of bilateral knee pain, worse on the right. He is able to show me his flexion and extension of his knee, though unable to completely straighten his leg. No edema noted. ASSESSMENT: 1. Post-laminectomy syndrome. 2. Chronic low back pain. 3. Lumbar radiculopathy. 4. Degeneration of the lumbar spine. 5. Osteoarthritis. 6. Bilateral knee pain. 7. Management of opioid medications under terms of written opioid agreement. We reviewed the fact that opiate medications are being used to provide analgesia adequate to support activities of daily living, not attempting to achieve a specific pain score on the 0-10 Visual Analog Scale. The current opiate medications are providing sufficient analgesia to allow the patient to participate in activities of daily living. The patient is not exhibiting any aberrant behavior suggestive of drug diversion. The patient is not having any adverse reactions to medications. The patient is not suffering from daytime somnolence or mental acuity changes. The patient is managing opiate-induced constipation with appropriate dqan-ddl-arxofag agents and dietary considerations. The patient was counseled on concern for caution with operating a motor vehicle while using opiate medications. A physical exam was performed and the patient's functional status was evaluated. All patients with back pain were advised against the bed rest greater than [address] [place] [address] PAIN MANAGEMENT CONSULTATION Name: SAURABH RAI DENISA Room #: REG STEVE BooneTy#: [id number] Admission: 06/26/19 Attend Phys: Li BRIAN Ferreira Discharge: Date of : 39 Report #: [id number] days and were advised to return to normal activities. Pain score assessment was noted and the treatment plan was reviewed with the patient. All current medications, both prescribed and OTC were reviewed and reconciled on the electronic medical record. Tobacco screening was accomplished and smoking cessation was advised when indicated. BMI was noted and diet/exercise modification was recommended for all patients following outside normal parameters. I reviewed with the patient today their responsibilities to safeguard prescription medications, reviewed their responsibility to utilize medications only as prescribed by the physician. They are to seek and receive pain medications only from 1 physician group ( [facility]). They are to use 1 pharmacy and keep the clinic informed if they change pharmacies. Their responsibilities include making followup visits in a timely fashion and to avoid abrupt discontinuation of medication usage. Their responsibilities further include bringing their medications (bottles from the pharmacy with residual pills) to the visit for possible confirmation of pill counts and the patient understands it is their responsibility to submit to random drug screens to ensure both that the medications prescribed are present, and that no other controlled substances are present. All prescriptions provided today were generated electronically. PLAN: 1. We discussed treatment options with the patient today. The patient continues to do well on his hydrocodone. Scripts given today for , #90 for today for an 8-week release. This places the patient at 30 morphine mEq a day, well below the CDC guidelines. 2. Script given for ibuprofen 400 mg, #120 with 2 additional refills. 3. Encouraged the patient to continue his therapy, so he is able to get his knee replaced. The patient is following up with his Orthopedic soon to see what progress that he still needs to make. The patient will return in 3 months. The patient is seen in collaboration with Dr. Doug Bauer today. <ELECTRONICALLY SIGNED> By: Li Ferreira 06/27/19 [id number] Li Ferreira /nt
== END ==
LOC: PAIN 06:48
DX: M51.16 Intervertebral disc disorders with radiculopathy, lumbar region (principal); M96.1 Postlaminectomy syndrome, not elsewhere classified; M25.562 Pain in left knee; M25.561 Pain in right knee; M19.90 Unspecified osteoarthritis, unspecified site; Z79.891 Long term (current) use of opiate analgesic; Z88.8 Allergy status to other drugs, medicaments and biological substances; Z79.899 Other long term (current) drug therapy

== ENCOUNTER → 2019-09-25 | Outpatient (CLI) | payer MEDICARE, OTHER ==
[~2019-09-25] VITALS: Ht 167.6 cm; Wt 68.0 kg
[2019-09-25 09:08] VITALS: BP 143/90
--- NOTE | 2019-09-25 09:32 | NUR ---
Pain Clinic Assessment: 1. History of Osteoarthritis: B/L KNEES B/L SHOULDERS History of Rheumatoid Arthritis: Not Applicable 2. Height: 5 ft. 6 in. 167.6 cm. Weight: 150.0 lb. oz. 68.040 kg. Patient's BMI: 24.2 3. Vital Signs: BP: 143/90 Pulse: 80 Resp: 16 Temp: 02 Sat: 100 ECG Mon: 4. Pain Intensity: 6 5. Fall Risk: Dizziness: N Needs help standing or walking: Y Fallen in the last 3 months: N Fall risk comments: 6. Patient on Blood Thinner: None 7. History of Hypertension: Y 8. Opioid Therapy greater than 6 weeks: Y Opiate Contract Signed: 06/01/16 9. Risk Assessment Tool Provided: 3 low risk 10. Functional Assessment Tool: 11. Recreational Drug Use: Never Drug Type: Tobacco Use: Never Smoker Tobacco Type: Amount or Packs/day: How Many Years: Alcohol Use: No Frequency: Quant:
--- NOTE | 2019-09-26 12:40 | HPC ---
[facility] [address] [address] PAIN MANAGEMENT CONSULTATION Name: SAURABH RAI DENISA Room #: REG STEVE Jennie#: [id number] Admission: 09/25/19 Attend Phys: Li Ferreira Discharge: Date of : 39 Report #: [id number] THIS REPORT FOR: //name// CC: Li Ferreira FAM unknown DATE OF SERVICE: 09/25/2019 CHIEF COMPLAINT: Chronic back pain, bilateral knee pain and neck pain. HISTORY OF PRESENT ILLNESS: This is a pleasant 79-year-old gentleman who returns to the pain clinic today for refill of his medications that he uses to help treat his ongoing low back pain and bilateral leg and knee pain. He reports that the pain medications are very beneficial in helping relieve some of his pain, though he is rating the pain score today of 6/10. It is mostly located in his knees. It is a constant, aching pain, burning, worse with sitting still. He finds exercise and movement as well as his medication very beneficial. He denies any problems of side effects of daytime sleepiness or constipation. He does use MiraLax every day to help prevent constipation issues. The patient continues to do physical therapy, stretching and using a stationary bike, trying to continue his rehabilitation to be able to strengthen his legs and straighten them, so he is able to have his knee replacement. He has no date set currently for his surgery. ALLERGIES: DARVON. CURRENT LIST OF MEDICATIONS: Chlorthalidone 25 mg daily, ibuprofen 400 mg q.i.d. p.r.n., hydrocodone 10/325 up to t.i.d., MiraLax daily, omeprazole, gabapentin 300 mg daily, Flexeril, metoprolol 50 mg daily and Colace. PQRS: 1. He has osteoarthritic changes in his bilateral knees and shoulders. Denies any rheumatoid arthritis. 2. Height is 5 feet 6 inches, weight is 150, BMI is 24. 3. Vital signs 143/90, pulse is 80, respirations 16, oxygen sat is 100. 4. Pain score 6/10. 5. Denies dizziness. Does need help walking. He is on electric wheelchair today and he has not fallen in the last 3 months. 6. The patient is not on any blood thinners, but does take medicines for hypertension. 7. Opiate therapy is greater than 6 weeks; therefore, an opioid signed contract is on the chart. His risk assessment tool is low. Functional assessment is 30/70. 8. He does not use recreational drugs. He is not a smoker and does not use alcohol. [address] [address] PAIN MANAGEMENT CONSULTATION Name: SAURABH RAI DENISA Room #: REG STEVE Schneider#: [id number] Admission: 09/25/19 Attend Phys: Li Ferreira Discharge: Date of : 39 Report #: [id number] According to the prescription monitoring system, the patient is filling appropriately in a timely fashion. He tells me he safeguards his meds at all times and is only filling from one provider from our clinic. There is also a recent drug screen on his chart that is appropriate for his medications as well. PHYSICAL EXAMINATION: GENERAL: This is alert and orientated 79-year-old gentleman who appears his stated age, placing his current pain score at 6/10 today. He is a good historian. HEENT: Normocephalic, atraumatic. Extraocular eye muscles are intact. Speech is fluent. EXTREMITIES: No clubbing. No cyanosis. There are arthritic nodules present on his bilateral hands. MUSCULOSKELETAL: He has bilateral knee pain, worse on the right than the left. He is able to extend his legs, though not completely straight. He is about 150 degrees currently. His lower extremity strength judged to be 4/5 bilaterally. He is in electric wheelchair today and does use a walker at home. ASSESSMENT: 1. Post-laminectomy syndrome. 2. Chronic low back pain. 3. Lumbar radiculopathy. 4. Degeneration of the lumbar spine. 5. Osteoarthritis, multiple joints. 6. Bilateral knee pain. 7. Management of opioid medications under terms of written opioid agreement. PLAN: 1. We discussed treatment options with the patient today. The patient continues to do quite well on his hydrocodone, keeping him as active as he would like. Scripts given today for hydrocodone 10/325, #90 for release today, 4-week and 8-week release. According to the CDC guidelines, this places him at 30 morphine mEq a day. 2. Scripts also given for ibuprofen 400 mg, #120 with 2 additional refills. 3. We did encourage the patient to continue with his therapy. Hopefully, by the time we see him in 3 months, he will be able to straighten his legs at a complete 180 degrees, therefore being able to schedule his knee replacement. 4. The patient is seen in collaboration with Dr. Doug Bauer today, who he will see at his next visit. <ELECTRONICALLY SIGNED> By: Li Ferreira 09/26/19 1240 [id number] Li Ferreira /eddie
== END ==
LOC: PAIN 09-24 10:31
DX: M51.16 Intervertebral disc disorders with radiculopathy, lumbar region (principal); G89.29 Other chronic pain; M96.1 Postlaminectomy syndrome, not elsewhere classified; M17.0 Bilateral primary osteoarthritis of knee; Z79.891 Long term (current) use of opiate analgesic; Z79.899 Other long term (current) drug therapy

== ENCOUNTER → 2019-12-31 | Outpatient (CLI) | payer MEDICARE, OTHER ==
[2019-12-31 14:53] VITALS: BP 159/86
--- NOTE | 2019-12-31 15:08 | NUR ---
Pain Clinic Assessment: 1. History of Osteoarthritis: B/L KNEES B/L SHOULDERS History of Rheumatoid Arthritis: Not Applicable 2. Height: ft. in. cm. Weight: 150.0 lb. oz. 68.040 kg. Patient's BMI: 3. Vital Signs: BP: 159/86 Pulse: 86 Resp: 14 Temp: 02 Sat: 100 ECG Mon: 4. Pain Intensity: 7 5. Fall Risk: Dizziness: N Needs help standing or walking: Y Fallen in the last 3 months: Y Fall risk comments: 6. Patient on Blood Thinner: None 7. History of Hypertension: Y 8. Opioid Therapy greater than 6 weeks: Y Opiate Contract Signed: 06/01/16 9. Risk Assessment Tool Provided: 3 low risk 10. Functional Assessment Tool: 11. Recreational Drug Use: Never Drug Type: Tobacco Use: Never Smoker Tobacco Type: Amount or Packs/day: How Many Years: Alcohol Use: No Frequency: Quant:
--- NOTE | 2020-01-07 08:03 | HPC ---
[facility] [address] [address] PAIN MANAGEMENT CONSULTATION Name: FREDISAURABH DENISA Room #: REG STEVE Schneider#: [id number] Admission: 12/31/19 Attend Phys: Doug Bauer DO Discharge: Date of : 39 Report #: [id number] THIS REPORT FOR: cc: [facility] - [facility] physician unknown [facility] - Clinic physician unknown Doug Bauer DO ~ THIS REPORT FOR: //name// CC: [facility] unknown ANDREA Bauer DATE OF SERVICE: 12/31/2019 REFERRING PHYSICIAN: Andrea Grimm MD CHIEF COMPLAINT: Chronic back pain, bilateral knee pain, neck pain. HISTORY OF PRESENT ILLNESS: As you know, the patient is a pleasant 79-year-old male who returns today in followup visit requesting refill on medications. He continues to experience chronic back pain for which the patient was originally referred to our service. He continues to experience bilateral knee pain due to osteoarthritis and chronic neck pain due to cervical spondylosis without radiculopathy. The patient reports good efficacy with the medications provided through our services including the Benton and ibuprofen despite the fact that he places current pain score 7/10. He returns today in followup visit, denying side effects to medication including somnolence, decreased mental acuity, disorientation, confusion, mental slowing and constipation with the opioids. He denies dyspepsia, worsening of blood pressure, lower extremity edema with the ibuprofen. He returns for refills of both. ALLERGIES: DARVON. CURRENT MEDICATIONS: Chlorthalidone 25 mg once a day, ibuprofen 400 mg 3-4 times a day p.r.n., hydrocodone 10/325 p.o. t.i.d. p.r.n., MiraLax 17 grams per day, omeprazole 40 mg per day, gabapentin 300 mg once a day, Flexeril 10 mg b.i.d. p.r.n. muscle spasms and metoprolol 50 mg once a day. SOCIAL HISTORY: The patient denies tobacco, alcohol, IV or illicit drug use. He is retired. He is unaccompanied today. IMAGING: No new imaging available. PQRS: The patient has known arthritic changes of the lumbar spine, bilateral knees, neck and bilateral shoulders. No rheumatoid arthritis. He is placing pain intensity today at 7/10. He is a fall risk, has had falls in the last [address] [address] PAIN MANAGEMENT CONSULTATION Name: FREDISAURABH DENISA Room #: REG STEVE Jennie#: [id number] Admission: 12/31/19 Attend Phys: Doug Bauer DO Discharge: Date of : 39 Report #: [id number] months, trying to get out of his scooter. He does use multiple ambulatory devices throughout the day. He is not on blood thinners, but is treated for hypertension. He is on chronic opioids and has been so for an extended period of time. He has a low to moderate risk of opioid addiction. Pain impact score is 30/70 indicating moderate interference of daily activities secondary to pain despite the 7/10 pain reported. PHYSICAL EXAMINATION: VITAL SIGNS: Blood pressure 159/86, pulse 86, respiratory rate 14 and unlabored. The patient is 100% on room air. GENERAL: Well-developed, well-nourished, well-hydrated, 79-year-old male, appearing stated age. He is in no acute distress, awake, alert and oriented x 3. Current pain score 7/10. HEENT: Normocephalic, atraumatic. Pupils equal, round and reactive to light. Speech is fluent. EXTREMITIES: Show no clubbing, no cyanosis. There is noted mild edema in the bilateral lower extremities, appears to be dependent. MUSCULOSKELETAL: The patient has pain with active and passive range of motion of the bilateral knees. Standing from a seated position exacerbates symptoms, not only in the knees, but also in the lower back. ASSESSMENT: 1. Post-laminectomy syndrome. 2. Chronic low back pain. 3. Chronic lumbar radiculopathy. 4. Osteoarthritis of the bilateral knees. 5. Bilateral knee pain. 6. Complicated medication management utilizing scheduled medications. PLAN: 1. The patient has returned today in followup visit indicating no side effects to the current medication management. Despite the fact that he is providing a pain level of 7/10 today, he states the pain medications again offer about 60-70% improvement in overall symptoms. He denies any recent injury or trauma that may have caused an increase in the pain to be reported at 7/10 today. He returns today in followup visit requesting refill on medications. 2. We reviewed the fact that opiate medications are being used to provide analgesia adequate to support activities of daily living, not attempting to achieve a specific pain score on the 0-10 Visual Analog Scale. The current opiate medications are providing sufficient analgesia to allow the patient to participate in activities of daily living. The patient is not exhibiting any aberrant behavior suggestive of drug diversion. The patient is not having any adverse reactions to medications. The patient is not suffering from daytime somnolence or mental acuity changes. The patient is managing opiate-induced constipation with appropriate wgre-ftp-yomngdy agents and dietary considerations. The patient was counseled on concern for caution with operating [address] [address] PAIN MANAGEMENT CONSULTATION Name: SAURABH RAIN [id number] Admission: 12/31/19 Attend Phys: Doug Bauer DO Discharge: Date of : 39 Report #: [id number] a motor vehicle while using opiate medications. A physical exam was performed and the patient's functional status was evaluated. All patients with back pain were advised against the bed rest greater than 4 days and were advised to return to normal activities. Pain score assessment was noted and the treatment plan was reviewed with the patient. All current medications, both prescribed and OTC were reviewed and reconciled on the electronic medical record. Tobacco screening was accomplished and smoking cessation was advised when indicated. BMI was noted and diet/exercise modification was recommended for all patients following outside normal parameters. I reviewed with the patient today their responsibilities to safeguard prescription medications, reviewed their responsibility to utilize medications only as prescribed by the physician. They are to seek and receive pain medications only from 1 physician group ( [facility]). They are to use 1 pharmacy and keep the clinic informed if they change pharmacies. Their responsibilities include making followup visits in a timely fashion and to avoid abrupt discontinuation of medication usage. Their responsibilities further include bringing their medications (bottles from the pharmacy with residual pills) to the visit for possible confirmation of pill counts and the patient understands it is their responsibility to submit to random drug screens to ensure both that the medications prescribed are present, and that no other controlled substances are present. All prescriptions provided today were generated electronically. 3. The patient was provided prescription of Benton 10/325 mg 1 tab p.o. t.i.d. I have given the patient #90 tablets, releasing today, 4 weeks from today, 8 weeks from today, 3 months' worth of medication. 4. The patient was provided prescription of ibuprofen 400 mg dose. He is to take one tab 3-4 times a day for ongoing osteoarthritic pain. He was given #120 tablets, 2 refills, 3 months' worth of medication. 5. We will see the patient back in followup visit in 3 months for medication management. I did advise the patient that as the opioid rules change; we will have to adjust his medications appropriately. <ELECTRONICALLY SIGNED> By: Doug Bauer DO 01/07/20 0803 [id number] 19 Doug Bauer DO /nt
== END ==
LOC: PAIN 06:56
DX: M17.0 Bilateral primary osteoarthritis of knee (principal); M54.16 Radiculopathy, lumbar region; M96.1 Postlaminectomy syndrome, not elsewhere classified; G89.29 Other chronic pain; Z88.8 Allergy status to other drugs, medicaments and biological substances; Z79.899 Other long term (current) drug therapy

== ENCOUNTER → 2020-03-18 | Outpatient (CLI) | payer MEDICARE, OTHER ==
--- NOTE | 2020-03-19 08:07 | HPC ---
[facility] [place] [address] PAIN MANAGEMENT CONSULTATION Name: FREDISAURABH DENISA Room #: REG STEVE BooneDorieHannaDorie#: [id number] Admission: 03/18/20 Attend Phys: Li Ferreira Discharge: Date of : 39 Report #: [id number] THIS REPORT FOR: cc: Blake Grimm MD, John A. MD Hocker, Amanda CNS ~ CC: Doug Bauer DO DATE OF SERVICE: 03/18/2020 This is a tele-med appointment due to the COVID virus, speaking with him over the telephone from 1250 hours to 1305 hours. CHIEF COMPLAINT: Chronic back pain, bilateral knee pain. HISTORY OF PRESENT ILLNESS: This is an 80-year-old gentleman that I am speaking with via the telephone due to his age being 80 and high risk for COVID virus. The patient does not have a computer, so I am speaking with him over the telephone today. He is answering all my questions appropriately. Today, he is reporting his pain score 8/10, which is a fairly average number for him. He does take hydrocodone and ibuprofen on a regular basis and still continues to rate his pain fairly high, mostly in his lower back as well as his bilateral knees. It is a sharp pain. He does report he tries to exercise, but he has been unable to go to his treatments where he uses several different machines due to the COVID virus, so he has limited equipment at home, but he continues to try and be as active as he is able. The patient denies any problems with constipation or daytime sleepiness. He feels also that he sleeps well at night. Today, he is requesting refills of his medications. ALLERGIES: DARVON. CURRENT LIST OF MEDICATIONS: Ibuprofen 400 mg q.i.d., hydrocodone 10/325 t.i.d. p.r.n., chlorthalidone, MiraLax, omeprazole, gabapentin, Flexeril, Colace, and Toprol. PQRS: 1. He has osteoarthritis in his knees and shoulders. Denies any rheumatoid arthritis. Height, weight and vital signs are deferred since it is a tele-med appointment. 2. Pain score is 8/10. 3. Denies dizziness. Per his report, he needs significant help walking. He is in a wheelchair most of the time. He has not fallen in the last 3 months. 4. The patient is not on any blood thinners, but does take medicine for hypertension. Opioid therapy is greater than 6 weeks; therefore, an opioid signed contract is on the chart. Risk assessment tool is low. Functional assessment is 30/70. [address] [address] PAIN MANAGEMENT CONSULTATION Name: SAURABH RAI Room #: REG STEVE Schneider#: [id number] Admission: 03/18/20 Attend Phys: Li Ferreira Discharge: Date of : 39 Report #: [id number] 5. Recreational drug use. He denies he is not a smoker and does not drink alcohol. According to the prescription monitoring system, the patient is filling his medicine appropriately. He is due to fill his medications next week from Dr. Doug Bauer. According to the CDC guidelines, his morphine mEq is 30 MME per day. PHYSICAL EXAMINATION: GENERAL: As a review of systems, the patient is alert and orientated 80-year-old gentleman who is answering all my questions appropriately. MUSCULOSKELETAL: The patient complains of lumbar back pain that radiates down his legs. Also complains of tenderness in his bilateral knees. He states standing does increase his pain in his knees and back. IMPRESSION: 1. Post-laminectomy syndrome. 2. Chronic low back pain. 3. Chronic lumbar radiculopathy. 4. Osteoarthritis of his bilateral knees. 5. Bilateral knee pain. 6. Complicated medical management under scheduled medications. We reviewed the fact that opiate medications are being used to provide analgesia adequate to support activities of daily living, not attempting to achieve a specific pain score on the 0-10 Visual Analog Scale. The current opiate medications are providing sufficient analgesia to allow the patient to participate in activities of daily living. The patient is not exhibiting any aberrant behavior suggestive of drug diversion. The patient is not having any adverse reactions to medications. The patient is not suffering from daytime somnolence or mental acuity changes. The patient is managing opiate-induced constipation with appropriate wqfp-kyd-zjsqtez agents and dietary considerations. The patient was counseled on concern for caution with operating a motor vehicle while using opiate medications. PLAN: We discussed treatment options with the patient today. We will refill his hydrocodone 10/325, #90, for today for an 8-week supply as well as his ibuprofen for 3 months. The patient finds these very beneficial in reducing his pain allowing him to be as active as he is able with minimal side effects. Today, we coordinated care with Dr. Doug Bauer who is here present during this tele-med appointment. I explained to the patient that our goal is for him [facility] [place] [place] [address] [place] [address] PAIN MANAGEMENT CONSULTATION Name: SAURABH RAI Room #: REG STEVE MirandaDorie#: [id number] Admission: 03/18/20 Attend Phys: Li Ferreira Discharge: Date of : 39 Report #: [id number] to return to the clinic in the next 3 months for his next medication refill. The patient verbalizes understanding. <ELECTRONICALLY SIGNED> By: Li Ferreira 03/19/20 0807 [id number] 1433 Li Ferreira /nt
== END ==
LOC: TELEPC 07:51 → PAIN 07:51
DX: M54.16 Radiculopathy, lumbar region (principal); M17.0 Bilateral primary osteoarthritis of knee; M96.1 Postlaminectomy syndrome, not elsewhere classified; F11.20 Opioid dependence, uncomplicated; Z79.899 Other long term (current) drug therapy; Z88.8 Allergy status to other drugs, medicaments and biological substances

== ENCOUNTER → 2020-06-02 | Outpatient (CLI) | payer MEDICARE, OTHER ==
[2020-06-02 10:17] VITALS: BP 122/67
--- NOTE | 2020-06-02 10:29 | NUR ---
Pain Clinic Assessment: 1. History of Osteoarthritis: B/L KNEES B/L SHOULDERS History of Rheumatoid Arthritis: DENIES 2. Height: ft. in. cm. Weight: 140.0 lb. oz. 63.504 kg. Patient's BMI: 3. Vital Signs: BP: 122/67 Pulse: 79 Resp: 16 Temp: 02 Sat: 100 ECG Mon: 4. Pain Intensity: 5 5. Fall Risk: Dizziness: N Needs help standing or walking: Y Fallen in the last 3 months: N Fall risk comments: 6. Patient on Blood Thinner: None 7. History of Hypertension: Y 8. Opioid Therapy greater than 6 weeks: Y Opiate Contract Signed: 06/01/16 9. Risk Assessment Tool Provided: 3 low risk 10. Functional Assessment Tool: 11. Recreational Drug Use: Never Drug Type: Tobacco Use: Never Smoker Tobacco Type: Amount or Packs/day: How Many Years: Alcohol Use: No Frequency: Quant:
--- NOTE | 2020-06-03 09:20 | HPC ---
[facility] [address] [place] [address] [place] [address] PAIN MANAGEMENT CONSULTATION Name: FREDISAURABH DENISA Room #: REG STEVE MirandaDorie#: [id number] Admission: 06/02/20 Attend Phys: Li Ferreira Discharge: Date of : 39 Report #: [id number] THIS REPORT FOR: cc: Blake Grimm MD, John A. MD Hocker, Amanda CNS ~ CC: LANDON MENDIOLA DO DATE OF SERVICE: 06/02/2020 CHIEF COMPLAINT: Chronic back pain, bilateral knee pain. HISTORY OF PRESENT ILLNESS: This is a pleasant 80-year-old gentleman who returns to the pain clinic today for refill of his medications that he uses to help treat his ongoing low back pain and bilateral knee pain. Today, he is reporting a pain score of 5/10. He states that it is aching and burning feeling that is fairly constant, exacerbated by sitting. He states he does do exercises and tries to keep moving that does help relieve some of his pain as well as his medication. He is happy to report that he started physical therapy again. It had been stopped due to the COVID outbreak and he has been working very diligently trying to increase his range of motion in his knees, so he can have knee replacement, so he continues now twice a week. He does state that he did continue his exercises at home throughout his break from physical therapy. The patient denies any problems with constipation as a result of his medication. He does not feel that he is overmedicated. He feels like he is active as he would like. He mostly gets around in his electric wheelchair. He does have two scooters, one that he reports to me goes 30 miles an hour, which he states he stays on the sidewalk, but is very careful of traffic when he drives that fast wheelchair. Today, he is requesting medication refills. ALLERGIES: DARVON. LIST OF MEDICATIONS: Ibuprofen 400 mg q.i.d., hydrocodone 10/325 t.i.d., chlorthalidone, MiraLax, omeprazole, gabapentin, Flexeril, Colace, and Toprol. PQRS: 1. He has osteoarthritic changes in his knees and shoulders. Denies any rheumatoid arthritis. 2. Height is unsure. He did weigh 140 pounds today. Vital signs 122/67, pulse is 79, respirations 16, oxygen sat is 100. 3. Pain score is 5/10. 4. Denies dizziness. Does need help with ambulation, he does uses electric scooter. He has not fallen in the last 3 months. 5. The patient is not on any blood thinners, but does take medicine for [facility] [address] [place] [address] PAIN MANAGEMENT CONSULTATION Name: SAURABH RAI DENISA Room #: REG STEVE Schneider#: [id number] Admission: 06/02/20 Attend Phys: Li Ferreira Discharge: Date of : 39 Report #: [id number] hypertension. Opioid therapy is greater than 6 weeks; therefore, an opioid signed contract is on the chart. Risk assessment tool is low. Functional assessment is 30/70. 6. Recreational drug use, he denies, not a smoker and does not drink alcohol. According to the prescription monitoring system, the patient is filling appropriately. He is due in about 2 weeks' time to fill his hydrocodone. His morphine milliequivalent per day is 30 MME. PHYSICAL EXAMINATION: GENERAL: This is alert and orientated, well-developed, well-nourished 80-year-old gentleman who appears his stated age. He is rating his pain score at 5/10. HEENT: Normocephalic, atraumatic. Pupils equal, round and reactive to light. He is wearing a mask. EXTREMITIES: No clubbing, no cyanosis. He has 3+ edema in his left lower extremity and 2+ dependent edema in his right. MUSCULOSKELETAL: The patient has pain with active and passive range of motion of his bilateral knees. Standing from a seated position exacerbates his symptoms in his knees and his lower back. He has an antalgic gait, uses electric wheelchair most times. ASSESSMENT: 1. Post-laminectomy syndrome. 2. Chronic low back pain. 3. Chronic lumbar radiculopathy. 4. Osteoarthritis of the bilateral knees. 5. Bilateral knee pain. 6. Complicated medical management utilizing scheduled medications. We reviewed the fact that opiate medications are being used to provide analgesia adequate to support activities of daily living, not attempting to achieve a specific pain score on the 0-10 Visual Analog Scale. The current opiate medications are providing sufficient analgesia to allow the patient to participate in activities of daily living. The patient is not exhibiting any aberrant behavior suggestive of drug diversion. The patient is not having any adverse reactions to medications. The patient is not suffering from daytime somnolence or mental acuity changes. The patient is managing opiate-induced constipation with appropriate lqyt-irn-iwgeqmm agents and dietary considerations. The patient was counseled on concern for caution with operating a motor vehicle while using opiate medications. PLAN: 1. We discussed treatment options with the patient today. The patient finds his hydrocodone beneficial in controlling his pain. We will have Dr. Landon Mendiola send electronically , #90, for today, 4-week and 8-week release to [address] [address] PAIN MANAGEMENT CONSULTATION Name: SAURABH RAI DENISA Room #: REG STEVE Schneider#: [id number] Admission: 06/02/20 Attend Phys: Li Ferreira Discharge: Date of : 39 Report #: [id number] his [facility]. 2. The patient states that he genao s not take his ibuprofen 4 times a day. He feels like he has refills left. He states that it does help his arthritic pain. No scripts will be sent today. 3. I encouraged the patient to be as active as possible. Continue his exercises at home and his physical therapy working towards total knee replacement. 4. I did encourage the patient to keep his legs elevated when he is at home due to the dependent edema that he is experiencing in his lower extremities. 5. The patient is seen today in collaboration with Dr. Landon Mendiola. <ELECTRONICALLY SIGNED> By: Li Ferreira 06/03/20 0920 1111 [id number] Li Ferreira /eddie
== END ==
LOC: PAIN 05-27 09:12
PROVIDERS: ATTEND Clinical Nurse Specialist Adult Health
DX: M17.0 Bilateral primary osteoarthritis of knee (principal); M54.5 Low back pain; G89.29 Other chronic pain; M25.562 Pain in left knee; M25.561 Pain in right knee; I10 Essential (primary) hypertension; M96.1 Postlaminectomy syndrome, not elsewhere classified; M54.12 Radiculopathy, cervical region; Z88.5 Allergy status to narcotic agent

== ENCOUNTER → 2020-09-09 | Outpatient (CLI) | payer MEDICARE, OTHER ==
[2020-09-09 12:41] VITALS: BP 178/90
--- NOTE | 2020-09-09 12:49 | NUR ---
Pain Clinic Assessment: 1. History of Osteoarthritis: B/L KNEES B/L SHOULDERS History of Rheumatoid Arthritis: DENIES 2. Height: ft. in. cm. Weight: 150.0 lb. oz. 68.040 kg. Patient's BMI: 3. Vital Signs: BP: 178/90 Pulse: 56 Resp: 18 Temp: 02 Sat: 100 ECG Mon: 4. Pain Intensity: 5 5. Fall Risk: Dizziness: N Needs help standing or walking: Y Fallen in the last 3 months: N Fall risk comments: 6. Patient on Blood Thinner: None 7. History of Hypertension: Y 8. Opioid Therapy greater than 6 weeks: Y Opiate Contract Signed: 06/01/16 9. Risk Assessment Tool Provided: 3 low risk 10. Functional Assessment Tool: 11. Recreational Drug Use: Never Drug Type: Tobacco Use: Never Smoker Tobacco Type: Amount or Packs/day: How Many Years: Alcohol Use: No Frequency: Quant:
--- NOTE | 2020-09-10 07:35 | HPC ---
[facility] [address] [place] [address] PAIN MANAGEMENT CONSULTATION Name: SAURABH RAI DENISA Room #: REG STEVE MirandaDorie#: [id number] Admission: 09/09/20 Attend Phys: Li Ferreira Discharge: Date of : 39 Report #: [id number] CC: Li Zhou MD DATE OF SERVICE: 09/09/2020 CHIEF COMPLAINT: Chronic back pain, bilateral knee pain. HISTORY OF PRESENT ILLNESS: This is a very pleasant 80-year-old gentleman who returns to the pain clinic today for refills of his medication. Today, he is reporting his pain score 5/10. It is mostly located in his bilateral knees, though he does complain of ongoing low back pain as well. It is a constant, aching, burning sensation, worse with prolonged sitting. He does try to be as active as he is possible and do exercises, though because of COVID his gym has been shut down. He does have an exercise bike at home. He has been trying to use that as well as doing his stretching exercises to try and increase his mobility in his legs. He feels that the medications as well as the stretching exercises have been beneficial. He does complain of some constipation issues as a result of his medication and takes MiraLax on a daily basis. The patient does report that he has mostly been staying inside throughout the COVID outbreak and he is happy to have a doctor's appointment to be out and visiting with people today. ALLERGIES: DARVON. CURRENT LIST OF MEDICATIONS: Hydrocodone 10/325 p.r.n., ibuprofen 400 mg p.r.n., chlorthalidone, MiraLax, omeprazole, gabapentin, Flexeril, Colace, and Toprol. PQRS: 1. He has osteoarthritic changes in his knees, shoulders and back. Denies any rheumatoid arthritis. 2. Weight is 150. 3. Vital signs; blood pressure 178/90, pulse is 56, respirations 18, oxygen sat is 100, pain score is 5/10. 4. Fall risk. Denies dizziness. Does need assistance with walking. He is in a motorized wheelchair today, but otherwise uses a walker. He has not fallen in the last 3 months. 5. The patient is not on any blood thinners, but does take medicine for hypertension. 6. Opioid therapy is greater than 6 weeks; therefore, an opioid signed contract is on the chart. Risk assessment is low. Functional assessment is 30/70. 7. Recreational drug use, he denies. He is not a smoker and does not drink alcohol. According to the prescription monitoring system, the patient is filling appropriately. He is on time for his medication refills today. His morphine milliequivalent according to the CDC guidelines is 30. There is a drug screen on the chart and we will recheck this at his next visit. PHYSICAL EXAMINATION: GENERAL: This is alert and orientated 80-year-old gentleman who appears his stated age. He is well-developed, well-nourished, well-hydrated. He is in no acute distress, answering all questions appropriately. HEENT: Normocephalic, atraumatic. Pupils equal, round and reactive to light. Speech is fluent. He is wearing a mask. EXTREMITIES: No clubbing, no cyanosis. He has mild edema in his bilateral lower extremities, but this appears to be dependent. Pain is increased with active range of motion in his bilateral knees. Standing from a seated position exacerbates his symptoms in his lower back as well as his bilateral knees. He is deconditioned bilaterally in his lower extremities. ASSESSMENT: 1. Post-laminectomy syndrome. 2. Chronic low back pain. 3. Chronic lumbar radiculopathy. 4. Osteoarthritis of the bilateral knees. 5. Bilateral knee pain. 6. Complicated medical management utilizing scheduled medications. We reviewed the fact that opiate medications are being used to provide analgesia adequate to support activities of daily living, not attempting to achieve a specific pain score on the 0-10 Visual Analog Scale. The current opiate medications are providing sufficient analgesia to allow the patient to participate in activities of daily living. The patient is not exhibiting any aberrant behavior suggestive of drug diversion. The patient is not having any adverse reactions to medications. The patient is not suffering from daytime somnolence or mental acuity changes. The patient is managing opiate-induced constipation with appropriate csvm-yys-voazlwh agents and dietary considerations. The patient was counseled on concern for caution with operating a motor vehicle while using opiate medications. A physical exam was performed and the patient's functional status was evaluated. All patients with back pain were advised against the bed rest greater than 4 days and were advised to return to normal activities. Pain score assessment was noted and the treatment plan was reviewed with the patient. All current medications, both prescribed and OTC were reviewed and reconciled on the electronic medical record. Tobacco screening was accomplished and smoking cessation was advised when indicated. BMI was noted and diet/exercise modification was recommended for all patients following outside normal parameters. I reviewed with the patient today their responsibilities to safeguard prescription medications, reviewed their responsibility to utilize medications only as prescribed by the physician. They are to seek and receive pain medications only from 1 physician group ( [facility]). They are to use 1 pharmacy and keep the clinic informed if they change pharmacies. Their responsibilities include making followup visits in a timely fashion and to avoid abrupt discontinuation of medication usage. Their responsibilities further include bringing their medications (bottles from the pharmacy with residual pills) to the visit for possible confirmation of pill counts and the patient understands it is their responsibility to submit to random drug screens to ensure both that the medications prescribed are present, and that no other controlled substances are present. All prescriptions provided today were generated electronically. PLAN: 1. We discussed treatment options with the patient today. He reports no significant side effects from his hydrocodone. He does use MiraLax on a daily basis and finds that the medications enable him to be as active as he would like and feels they are very beneficial. Today, we will have Dr. Doug Bauer send his hydrocodone 10/325 t.i.d., #90 to his pharmacy for today and 4-week supply. 2. The patient was provided a prescription for ibuprofen 400, #120 with 2 additional refills of this medication as well. 3. I encouraged the patient to continue his exercise therapy. Unfortunately, his gym is not open currently, he is using a stationary bike and encourage ambulation and stretching exercises at home. Today, the patient is seen in collaboration with Dr. Doug Bauer and return in 3 months. <ELECTRONICALLY SIGNED> By: Li Ferreira 09/10/20 0735 1323 22 Li Ferreira /nt
== END ==
LOC: PAIN 06:54
PROVIDERS: ATTEND Clinical Nurse Specialist Adult Health
DX: M54.16 Radiculopathy, lumbar region (principal); G89.29 Other chronic pain; M96.1 Postlaminectomy syndrome, not elsewhere classified; M17.0 Bilateral primary osteoarthritis of knee; F11.20 Opioid dependence, uncomplicated; Z88.8 Allergy status to other drugs, medicaments and biological substances; Z79.899 Other long term (current) drug therapy

== ENCOUNTER → 2021-01-12 | Outpatient (CLI) | payer MEDICARE, OTHER ==
[~2021-01-12] MED LIST changes: +IBU400 MG PO
--- NOTE | 2021-01-12 14:52 | HPC ---
[facility] [address] [address] PAIN MANAGEMENT CONSULTATION Name: FREDISAURABH DENISA Room #: REG STEVE BooneTy#: [id number] Admission: 01/12/21 Attend Phys: Li Ferreira Discharge: Date of : 39 Report #: [id number] THIS REPORT FOR: cc: Blake Grimm MD, John A. MD Hocker, Amanda CNS ~ DATE OF SERVICE: 01/12/2021 CHIEF COMPLAINT: Chronic back pain, bilateral knee pain. HISTORY OF PRESENT ILLNESS: This is a telemedicine appointment that I am speaking via the telephone for this patient. He is sick at home, speaking with him from 10:30-10:47 that he has consented for. The patient complains of pain in his low back and his bilateral knees today, rating his pain score a 6/10. He does report that it is a constant, burning, aching sensation and he is in his wheelchair most of the time. He does report that he is doing his exercises to strengthen his legs, but has not gained any strength he feels per his report. The patient does report no constipation issues with his medications and is requesting refills of his hydrocodone today. The patient states he has not had the COVID vaccination. He is on the list. [facility] and he has not called them to find out when he would be able to get his vaccine. The patient also reports he is having virus symptoms today feeling sick and a runny nose, though he has not had a COVID test to verify that if he is positive or negative. He believes it is just the flu. ALLERGIES: DARVON. CURRENT LIST OF MEDICATIONS: Hydrocodone, ibuprofen, chlorthalidone, MiraLax, omeprazole, gabapentin, Flexeril, Colace, and Toprol. PQRS: 1. He has arthritic changes in his knees and shoulders and spine. Denies any rheumatoid arthritis. 2. Height, weight and vital signs were deferred due to a telemedicine appointment. Pain score is 6/10. 3. Fall risk. He denies dizziness. He is in a wheelchair. He reports no falls. He is not on any blood thinners, does take medicine for hypertension. His opioid therapy is greater than 6 weeks; therefore, an opioid signed contract is on the chart. Risk assessment is low. Functional assessment is 30/70. 4. Recreational drug use, he denies. He is not a smoker and does not drink alcohol. According to the prescription monitoring system, he is filling appropriately. He is due to fill his medications today. His morphine mEq is [address] [address] PAIN MANAGEMENT CONSULTATION Name: SAURABH RAI DENISA Room #: REG STEVE cShneider#: [id number] Admission: 01/12/21 Attend Phys: Li Ferreira Discharge: Date of : 39 Report #: [id number] PHYSICAL EXAMINATION: Deferred. This is a telemedicine appointment. He is alert and orientated, answering all my questions appropriately. He reports having a stuffy nose and cough, though he does not sound congested on the phone today. He reports soreness in his lower back and bilateral knees. ASSESSMENT: 1. Post-laminectomy syndrome. 2. Chronic low back pain. 3. Chronic lumbar radiculopathy. 4. Osteoarthritis involving his bilateral knees and shoulders. 5. Bilateral knee pain. 6. Complicated medical management utilizing scheduled opioid medications. PLAN: 1. We discussed treatment options with the patient today via our telephone conversation. I encouraged him to call the [place] system for his COVID vaccine. It is my understanding that the [facility] is having anybody that is in our system just come for the vaccine on a daily basis and encouraged him to call today to be vaccinated. He is in the age range that they are vaccinating in the phase right now. 2. We will have Dr. Doug Bauer send his hydrocodone 10/325, #90, to his pharmacy for today 4 week an 8-week release. These will be sent electronically to [facility]. 3. I will continue him on his ibuprofen 400 q.i.d. He denies any GI upset and feels that this medication does help his inflammation in his knees and shoulders. 4. The patient's visit was discussed with Dr. Doug Bauer who collaborated care. The patient will return in the clinic in 3 months' time. <ELECTRONICALLY SIGNED> By: Li Ferreira 01/12/21 1452 1052 1127 Li Ferreira /nt
== END ==
LOC: TELEPC 06:51
PROVIDERS: ATTEND Clinical Nurse Specialist Adult Health
DX: M96.1 Postlaminectomy syndrome, not elsewhere classified (principal); G89.29 Other chronic pain; M54.16 Radiculopathy, lumbar region; M19.011 Primary osteoarthritis, right shoulder; M19.012 Primary osteoarthritis, left shoulder; M17.0 Bilateral primary osteoarthritis of knee; Z79.891 Long term (current) use of opiate analgesic; Z79.899 Other long term (current) drug therapy

== ENCOUNTER 2021-03-06 13:31 | Emergency (ER) | payer MEDICARE, OTHER ==
[~2021-03-06] VITALS: Ht 172.7 cm; Wt 63.5 kg
[2021-03-06 14:29] LABS: URINE BILIRUBIN NEGATIVE (Negative); URINE BLOOD NEGATIVE (Negative); URINE CLARITY SL CLOUDY; URINE COLOR YELLOW; URINE GLUCOSE-RANDOM* NEGATIVE (Negative); URINE KETONES NEGATIVE (Negative); URINE NITRITE-REFLEX NEGATIVE (Negative); URINE PROTEIN (DIPSTICK) TRACE (Negative)
[2021-03-06 14:31] LABS: URINE LEUKOCYTES-REFLEX 1+ (Negative)
[2021-03-06 14:38] LABS: SQUAMOUS 0-3 Few /LPF (0-3)
[2021-03-06 14:39] LABS: BACTERIA-REFLEX >30 Many /HPF (None Seen); CASTS None Seen /LPF (None Seen); CRYSTALS None Seen /LPF (None Seen); URINE RBC 0-2 Rare /HPF (0-2)
[2021-03-06] MEDS ORDERED: OXYBUTYNIN 5 MG5 M2 PO (15:20)
[2021-03-06] MEDS ORDERED: LEVAQUIN 500 M500 MG PO ×2 (15:20→15:22)
[2021-03-06 17:12] VITALS: BP 110/72
[2021-03-09] MEDS ORDERED: CEPHALEXIN500 MG PO (18:36)
== END 2021-03-06 17:31 | disposition home or self-care (01) ==
LOC: ER 13:31
PROVIDERS: Emergency Medicine
DX: R32 Unspecified urinary incontinence (principal); N39.0 Urinary tract infection, site not specified; I10 Essential (primary) hypertension; M19.90 Unspecified osteoarthritis, unspecified site; G62.9 Polyneuropathy, unspecified; Z88.8 Allergy status to other drugs, medicaments and biological substances; Z79.899 Other long term (current) drug therapy; Z90.49 Acquired absence of other specified parts of digestive tract

== ENCOUNTER → 2021-04-22 | Outpatient (CLI) | payer MEDICARE, OTHER ==
[~2021-04-22] VITALS: Ht 172.7 cm; Wt 68.0 kg
[~2021-04-22] MED LIST changes: +CEPHALEXIN500 MG PO; +LEVAQUIN 500 M500 MG PO
[2021-04-22 10:33] VITALS: BP 157/92
--- NOTE | 2021-04-22 10:33 | NUR ---
Pain Clinic Assessment: 1. History of Osteoarthritis: B/L KNEES B/L SHOULDERS History of Rheumatoid Arthritis: DENIES 2. Height: 5 ft. 8 in. 172.7 cm. Weight: 150.0 lb. oz. 68.040 kg. Patient's BMI: 22.8 3. Vital Signs: BP: 157/92 Pulse: 75 Resp: 16 Temp: 02 Sat: 98 ECG Mon: 4. Pain Intensity: 7 5. Fall Risk: Dizziness: N Needs help standing or walking: N Fallen in the last 3 months: N Fall risk comments: 6. Patient on Blood Thinner: None 7. History of Hypertension: Y 8. Opioid Therapy greater than 6 weeks: Y Opiate Contract Signed: 06/01/16 9. Risk Assessment Tool Provided: 3 low risk 10. Functional Assessment Tool: 11. Recreational Drug Use: Never Drug Type: Tobacco Use: Never Smoker Tobacco Type: Amount or Packs/day: How Many Years: Alcohol Use: No Frequency: Quant:
== END ==
LOC: PAIN 07:06
PROVIDERS: ATTEND Clinical Nurse Specialist Adult Health
DX: G89.29 Other chronic pain (principal); M54.16 Radiculopathy, lumbar region; M17.0 Bilateral primary osteoarthritis of knee; M96.1 Postlaminectomy syndrome, not elsewhere classified; Z88.8 Allergy status to other drugs, medicaments and biological substances; Z79.891 Long term (current) use of opiate analgesic; Z79.899 Other long term (current) drug therapy

== ENCOUNTER → 2021-07-14 | Outpatient (CLI) | payer MEDICARE, OTHER ==
[2021-07-14 10:47] VITALS: BP 145/78
--- NOTE | 2021-07-14 10:56 | NUR ---
Pain Clinic Assessment: 1. History of Osteoarthritis: B/L KNEES B/L SHOULDERS History of Rheumatoid Arthritis: DENIES 2. Height: 5 ft. 7 in. 170.2 cm. Weight: lb. oz. kg. Patient's BMI: 3. Vital Signs: BP: 145/78 Pulse: 59 Resp: 14 Temp: 02 Sat: 100 ECG Mon: 4. Pain Intensity: 7 5. Fall Risk: Dizziness: N Needs help standing or walking: Y Fallen in the last 3 months: N Fall risk comments: 6. Patient on Blood Thinner: None 7. History of Hypertension: Y 8. Opioid Therapy greater than 6 weeks: Y Opiate Contract Signed: 06/01/16 9. Risk Assessment Tool Provided: 3 low risk 10. Functional Assessment Tool: 11. Recreational Drug Use: Never Drug Type: Tobacco Use: Never Smoker Tobacco Type: Amount or Packs/day: How Many Years: Alcohol Use: No Frequency: Quant:
--- NOTE | 2021-07-20 15:45 | HPC ---
[facility] [address] [address] PAIN MANAGEMENT CONSULTATION Name: FREDISAURABH DENISA Room #: REG STEVE MirandaDorie#: [id number] Admission: 07/14/21 Attend Phys: Doug Bauer DO Discharge: Date of : 38 Report #: [id number] THIS REPORT FOR: cc: Murray Sepulveda MD, Srinath MD Johnson, James E. DO ~ cc: Blake Grimm MD DATE OF SERVICE: 07/14/2021 REFERRING PHYSICIAN: Dr. Blake Grimm. CHIEF COMPLAINT: Low back pain, bilateral lower extremity pain. HISTORY OF PRESENT ILLNESS: As you know, the patient is an 81-year-old male referred to our clinic by his neurosurgeon to help with medication management. The patient continues to experience ongoing pain and weakness in the lower extremities for which surgical options will have to be entertained soon. He returns today in followup visit requesting refill on medications. He is now fairly down to his motorized wheelchair. This is due to deconditioning as well as progressively worsening spinal stenosis. He returns today requesting refill on medications. He is denying side effects with the use despite the elevated doses of opioids, he is reporting pain score 7/10. ALLERGIES: PROPOXYPHENE. CURRENT MEDICATIONS: Hydrocodone/acetaminophen 10/325 one tab t.i.d. p.r.n. pain, ibuprofen 400 mg 3 times a day, chlorthalidone 25 mg once a day, polyethylene glycol 17 grams per day, omeprazole 40 mg per day, gabapentin 300 mg once a day, cyclobenzaprine 10 mg 3 times a day, docusate sodium 100 mg once a day, metoprolol XL 50 mg once a day. SOCIAL HISTORY: The patient reports himself a nonsmoker. Denies IV or illicit drug use. He is on disability. Unaccompanied today. IMAGING: No new imaging available. PQRS: The patient has arthritic changes of the cervical spine, lumbar spine, bilateral knees and shoulders. No rheumatoid arthritis. He is placing current pain score 7/10. He has a fall risk, but utilizes a roller walker and motorized scooter for ambulation. He is not on blood thinners, but is treated for hypertension. He is on chronic opioids, has a ayp-hd-dxytogua risk of opioid addiction. Pain impact is 30/70, mild to moderate interference of daily activities secondary to pain. PHYSICAL EXAMINATION: VITAL SIGNS: Blood pressure 145/78, pulse 59, respiratory rate [address] [address] PAIN MANAGEMENT CONSULTATION Name: SAURABH RAI DENISA Room #: REG [facility] Ruben.#: [id number] Admission: 07/14/21 Attend Phys: Doug Bauer DO Discharge: Date of : 39 Report #: [id number] unlabored. The patient 100% on room air. Height 5 feet 7 inches tall. GENERAL: Well-developed, well-nourished, well-hydrated 81-year-old male appearing stated age, pain is rated today at around 7/10. HEENT: Normocephalic, atraumatic. Pupils are round. He has arcus senilis. LUNGS: Appear clear. EXTREMITIES: Show no clubbing, no cyanosis. No appreciable edema. MUSCULOSKELETAL: Lower extremity strength is diminished bilaterally. He has decreased muscle mass of the lower extremities. He is able to generate force against resistance with all muscle groups in the lower extremities. Seated straight leg raising negative. Supine straight leg raising is positive. Modified Gaenslen's positive for axial low back pain. ASSESSMENT: 1. Chronic lumbar radiculopathy. 2. Post-laminectomy syndrome. 3. Lumbosacral spondylosis with radiculopathy. 4. Osteoarthritis of multiple weightbearing joints. 5. Chronic intractable pain. 6. Complicated medication management utilizing scheduled medications. PLAN: 1. The patient returns today in followup visit requesting refill on medications. He feels medications are working beneficially despite the fact that he is providing a pain level rated at up to 7/10. We have discussed this with the patient today. He states he is doing well with the medication and wishes no changes. We reviewed the fact that opiate medications are being used to provide analgesia adequate to support activities of daily living, not attempting to achieve a specific pain score on the 0-10 Visual Analog Scale. The current opiate medications are providing sufficient analgesia to allow the patient to participate in activities of daily living. The patient is not exhibiting any aberrant behavior suggestive of drug diversion. The patient is not having any adverse reactions to medications. The patient is not suffering from daytime somnolence or mental acuity changes. The patient is managing opiate-induced constipation with appropriate gdlu-jwf-lqdjpcj agents and dietary considerations. The patient was counseled on concern for caution with operating a motor vehicle while using opiate medications. A physical exam was performed and the patient's functional status was evaluated. All patients with back pain were advised against the bed rest greater than 4 days and were advised to return to normal activities. Pain score assessment was noted and the treatment plan was reviewed with the patient. All current medications, both prescribed and OTC were reviewed and reconciled on the electronic medical record. Tobacco screening was accomplished and smoking cessation was advised when indicated. BMI was noted and diet/exercise [address] [place] [address] PAIN MANAGEMENT CONSULTATION Name: SAURABH RAI DENISA Room #: REG STEVE BooneDorieHannaDorie#: [id number] Admission: 07/14/21 Attend Phys: Doug Bauer DO Discharge: Date of : 39 Report #: [id number] modification was recommended for all patients following outside normal parameters. I reviewed with the patient today their responsibilities to safeguard prescription medications, reviewed their responsibility to utilize medications only as prescribed by the physician. They are to seek and receive pain medications only from 1 physician group ( [facility]). They are to use 1 pharmacy and keep the clinic informed if they change pharmacies. Their responsibilities include making followup visits in a timely fashion and to avoid abrupt discontinuation of medication usage. Their responsibilities further include bringing their medications (bottles from the pharmacy with residual pills) to the visit for possible confirmation of pill counts and the patient understands it is their responsibility to submit to random drug screens to ensure both that the medications prescribed are present, and that no other controlled substances are present. All prescriptions provided today were generated electronically. 2. The patient was provided prescription of hydrocodone/acetaminophen 10/325, one tab every 8 hours p.r.n. for pain. I have given the patient #90 tablets to release today, 4 weeks from today, 8 weeks from today, 3 months' worth of medication. The patient was advised to take the medication only when pain is intolerable, not to rely on the medication prophylactically. 3. The patient was provided refill prescription of ibuprofen 400 mg dose 1 tab q.i.d., #120, 2 refills, 3 months' worth of medication. Prescriptions sent via e-scribe to local pharmacy. 4. Plan is to see the patient back in followup visit in 3 months. He will be following up with my nurse practitioner, Li Ferreira. <ELECTRONICALLY SIGNED> By: Doug Bauer DO 07/20/21 1545 [id number] Doug Bauer DO /nt
== END ==
LOC: PAIN
PROVIDERS: ATTEND Anesthesiology Pain Medicine
DX: G89.29 Other chronic pain (principal); M79.662 Pain in left lower leg; M79.661 Pain in right lower leg; M54.5 Low back pain; M47.27 Other spondylosis with radiculopathy, lumbosacral region; M85.88 Other specified disorders of bone density and structure, other site; M96.1 Postlaminectomy syndrome, not elsewhere classified; Z88.8 Allergy status to other drugs, medicaments and biological substances; Z79.891 Long term (current) use of opiate analgesic

== ENCOUNTER → 2021-09-27 | Outpatient (CLI) | payer MEDICARE, OTHER ==
[~2021-09-27] MED LIST changes: +KLOR-CON M2020 MEQ PO
[2021-09-27 14:15] VITALS: BP 110/68
--- NOTE | 2021-09-27 14:17 | NUR ---
Pain Clinic Assessment: 1. History of Osteoarthritis: B/L KNEES B/L SHOULDERS History of Rheumatoid Arthritis: DENIES 2. Height: ft. in. cm. Weight: lb. oz. kg. Patient's BMI: 3. Vital Signs: BP: 110/68 Pulse: 78 Resp: 16 Temp: 02 Sat: ECG Mon: 4. Pain Intensity: 7 5. Fall Risk: Dizziness: N Needs help standing or walking: Y Fallen in the last 3 months: N Fall risk comments: 6. Patient on Blood Thinner: None 7. History of Hypertension: Y 8. Opioid Therapy greater than 6 weeks: Y Opiate Contract Signed: 06/01/16 9. Risk Assessment Tool Provided: 3 low risk 10. Functional Assessment Tool: 11. Recreational Drug Use: Never Drug Type: Tobacco Use: Never Smoker Tobacco Type: Amount or Packs/day: How Many Years: Alcohol Use: No Frequency: Quant:
== END ==
LOC: PAIN 13:50
PROVIDERS: ATTEND Clinical Nurse Specialist Adult Health
DX: M47.27 Other spondylosis with radiculopathy, lumbosacral region (principal); M25.561 Pain in right knee; M25.562 Pain in left knee; M19.09 Primary osteoarthritis, other specified site; M96.1 Postlaminectomy syndrome, not elsewhere classified; Z88.8 Allergy status to other drugs, medicaments and biological substances; Z79.899 Other long term (current) drug therapy

== ENCOUNTER → 2021-12-29 | Outpatient (CLI) | payer MEDICARE, OTHER ==
[2021-12-29 14:21] VITALS: BP 157/77
--- NOTE | 2021-12-29 14:47 | NUR ---
Pain Clinic Assessment: 1. History of Osteoarthritis: B/L KNEES B/L SHOULDERS History of Rheumatoid Arthritis: DENIES 2. Height: ft. in. cm. Weight: 145.0 lb. oz. 65.772 kg. Patient's BMI: 3. Vital Signs: BP: 157/77 Pulse: 68 Resp: 14 Temp: 02 Sat: 100 ECG Mon: 4. Pain Intensity: 5-6 5. Fall Risk: Dizziness: N Needs help standing or walking: Y Fallen in the last 3 months: N Fall risk comments: 6. Patient on Blood Thinner: None 7. History of Hypertension: Y 8. Opioid Therapy greater than 6 weeks: Y Opiate Contract Signed: 06/01/16 9. Risk Assessment Tool Provided: 3 low risk 10. Functional Assessment Tool: 11. Recreational Drug Use: Never Drug Type: Tobacco Use: Never Smoker Tobacco Type: Amount or Packs/day: How Many Years: Alcohol Use: No Frequency: Quant:
== END ==
LOC: PAIN 06:56
PROVIDERS: ATTEND Clinical Nurse Specialist Adult Health
DX: M47.27 Other spondylosis with radiculopathy, lumbosacral region (principal); M54.16 Radiculopathy, lumbar region; G89.29 Other chronic pain; M15.9 Polyosteoarthritis, unspecified; Z88.8 Allergy status to other drugs, medicaments and biological substances; Z79.899 Other long term (current) drug therapy